=== PATIENT | female | born 1925 | race Caucasian/White ===

== ENCOUNTER 2016-05-10 14:31 | Inpatient (IN) | payer MEDICARE, MEDICAID ==
[2016-05-10 14:31] VITALS: BMI 18.9
--- NOTE | 2016-05-10 15:43 | C.PDOC ---
History Of Present Illness 89-year-old female, PMHx includes Hypertension, Asthma and COPD, presents to the emergency department accompanied by daughter, with complaints of productive cough and fever for the past three days. Patient denies nausea/vomiting, abdominal pain, back pain, chest pain or SOB. Time Seen by Provider: 05/10/16 14:48 Chief Complaint (Nursing): Cough, Cold, Congestion History Per: Patient History/Exam Limitations: no limitations Onset/Duration Of Symptoms: Days (3) Current Symptoms Are (Timing): Still Present Associated Symptoms: Fever, Cough Ear Symptoms: Bilateral: None Severity: Mild Past Medical History Reviewed: Historical Data, Nursing Documentation, Vital Signs Vital Signs: Last Vital Signs Temp 98.1 F 05/21/16 15:00 Pulse 85 05/21/16 15:00 Resp 20 05/21/16 15:00 BP 148/77 05/21/16 15:00 Pulse Ox 100 05/21/16 15:00 - Medical History PMH: Arthritis, Asthma, COPD, HTN Family History: States: No Known Family Hx - Social History Hx Alcohol Use: No Hx Substance Use: No - Immunization History Hx Tetanus Toxoid Vaccination: No Hx Influenza Vaccination: Yes Hx Pneumococcal Vaccination: No Review Of Systems Except As Marked, All Systems Reviewed And Found Negative. Constitutional: Positive for: Fever Cardiovascular: Negative for: Chest Pain, Palpitations Respiratory: Positive for: Cough. Negative for: Shortness of Breath Gastrointestinal: Negative for: Nausea, Vomiting, Abdominal Pain, Diarrhea Genitourinary: Negative for: Dysuria, Hematuria Physical Exam - Physical Exam Appears: Well, Non-toxic, No Acute Distress, Other (speaking in full sentences) Skin: Warm, Dry, No Rash Eye(s): bilateral: Normal Inspection Oral Mucosa: Moist Throat: Normal, No Erythema, No Exudate Neck: Normal, Normal ROM Cardiovascular: Rhythm Regular Respiratory: Decreased Breath Sounds (left lung base), No Accessory Muscle Use, No Rales, No Rhonchi, No Wheezing Gastrointestinal/Abdominal: Normal Exam, Bowel Sounds, Soft, No Tenderness Extremity: Normal ROM, No Tenderness, No Pedal Edema, No Calf Tenderness Neurological/Psych: Oriented x3 ED Course And Treatment - Laboratory Results Result Diagrams: 05/20/16 08:30 05/20/16 08:30 ECG: Interpreted By Me, Viewed By Me (sinus tachycardia 106 bpm, normal axis, RBBB, no acute ST/T wave changes) O2 Sat by Pulse Oximetry: 100 (RA) Pulse Ox Interpretation: Normal - Other Rad cxr X-Ray: Viewed By Me, Read By Radiologist Interpretation: Accession No. : [id number]. Patient Name / ID : MARYCRUZ IBARRA / [id number]. Exam Date : 05/10/2016 16:40:32 ( Approved ). Study Comment : Sex / Age : F / 89Y. Creator : Richy Blackburn MD. Dictator : Richy Blackburn MD. Hand Drawer In Helper : Chemical Production Technician : Richy Blackburn MD. Approver2 : Report Date : 05/10/2016 17:01:53. My Comment : . PROCEDURE: CHEST RADIOGRAPH, 1 VIEW. HISTORY: COUGH, FEVER. COMPARISON: April 26, 2016. FINDINGS: LUNGS: Stable mass, volume loss right lung, right upper lobe. PLEURA: No pneumothorax or pleural fluid seen. CARDIOVASCULAR: No radiographic findings to suggest acute or significant cardiovascular disease. OSSEOUS STRUCTURES: No significant abnormalities. VISUALIZED UPPER ABDOMEN: Normal. OTHER FINDINGS: None. IMPRESSION: No active disease. No acute/ significant interval changes. Progress Note: Bloodwork, CXR, UA ordered and reviewed. Patient's symptoms suspicious for clinical pneumonia - patient recently discharged from hospital, will need coverage for HAP. Patient given IV Maxipime, IV Avelox and IV Vancomycin. - Physician Consult Information Physician Contacted: Meryl Coulter Outcome Of Conversation: Discussed patient with Dr. Coulter, he agrees with admission for fever, pneumonia. Medical Decision Making Medical Decision Making: differential diagnoses considered: pneumonia, bronchitis, viral syndrome, UTI, influenza Disposition - Disposition Disposition: HOSPITALIZED Disposition Time: 17:53 Condition: STABLE - Clinical Impression Clinical Impression: Fever, Cough, Pneumonia - Scribe Statement The provider has reviewed the documentation as recorded by the Sam Galicia All medical record entries made by the Scribe were at my direction and personally dictated by me. I have reviewed the chart and agree that the record accurately reflects my personal performance of the history, physical exam, medical decision making, and the department course for this patient. I have also personally directed, reviewed, and agree with the discharge instructions and disposition. Decision To Admit - Pt Status Changed To: Hospital Disposition Of: Inpatient - Admit Certification Admit to Inpatient:: After my assessment, the patient will require hospitalization for at least two midnights. This is because of the severity of symptoms shown, intensity of services needed, and/or the medical risk in this patient being treated as an outpatient. - InPatient: Physician Admission Certification: I certify that this patient requires 2 or more midnights of care for the following reason:: see notes - . Bed Request Type: Regular Admitting Physician: Meryl Coulter Patient Diagnosis: Fever, Cough, Pneumonia
[2016-05-10 16:46] LABS: BASO % 0.3 % (0.0-2.0); HEMATOCRIT 35.3 % (34.0-47.0); LYMPH # 1.1 K/uL (1.0-4.3); LYMPH % 7.2 % (20.0-40.0); MEAN CELL VOLUME 92.7 fL (81.0-99.0); MEAN CORPUSCULAR HEMOGLOBIN 30.1 pg (27.0-31.0); MEAN CORPUSCULAR HGB CONC 32.5 g/dL (33.0-37.0); MEAN PLATELET VOLUME 7.4 fL (7.2-11.7); MONO # 0.9 K/uL (0.0-0.8); MONO % 6.3 % (0.0-10.0); PLATELET COUNT 282 K/uL (130-400); RED CELL DISTRIBUTION WIDTH 12.9 % (11.5-14.5); WHITE BLOOD COUNT 15.1 K/uL (4.8-10.8)
[2016-05-10 16:52] LABS: CHLORIDE 91 mmol/L (98-107)
[2016-05-10 16:53] LABS: POTASSIUM 4.2 mmol/L (3.6-5.2); SODIUM 135 mmol/L (132-148)
[2016-05-10 16:56] LABS: ALB/GLOB RATIO 1.1 (1.0-2.1); ALKALINE PHOSPHATASE 104 U/L (38-126); ALT/SGPT 30 U/L (9-52); AST/SGOT 34 U/L (14-36); BILIRUBIN,TOTAL 0.5 mg/dL (0.2-1.3); BLOOD UREA NITROGEN 13 mg/dL (7-17); CALCIUM 7.9 mg/dl (8.6-10.4); CARBON DIOXIDE 30 mmol/L (22-30); GFR AFRICAN-AMERICAN > 60; GLUCOSE,RANDOM 98 mg/dL (65-105); TOTAL PROTEIN 7.3 g/dL (6.3-8.3)
[2016-05-10 17:01] LABS: URINE BACTERIA RARE (<OCC); URINE BILIRUBIN NEGATIVE (NEGATIVE); URINE BLOOD NEGATIVE (NEGATIVE); URINE COLOR Yellow (YELLOW); URINE GLUCOSE (UA) NORMAL (Normal); URINE KETONE NEGATIVE (NEGATIVE); URINE LEUKOCYTE ESTERASE TRACE Leu/uL (Negative); URINE PROTEIN NEGATIVE (NEGATIVE); URINE UROBILINOGEN NORMAL mg/dL (0.2-1.0); WBC URINE 6 /hpf (0-5)
--- NOTE | 2016-05-10 17:03 | RAD ---
PROCEDURE: CHEST RADIOGRAPH, 1 VIEW HISTORY: COUGH, FEVER COMPARISON: April 26, 2016. FINDINGS: LUNGS: Stable mass, volume loss right lung, right upper lobe. PLEURA: No pneumothorax or pleural fluid seen. CARDIOVASCULAR: No radiographic findings to suggest acute or significant cardiovascular disease. OSSEOUS STRUCTURES: No significant abnormalities. VISUALIZED UPPER ABDOMEN: Normal. OTHER FINDINGS: None. IMPRESSION: No active disease. No acute/significant interval changes.
[2016-05-10 17:10] LABS: VENOUS BLOOD GAS BASE EXCESS 5.6 mmol/L (0.0-2.0); VENOUS BLOOD GAS PCO2 45 mmHg (40-60); VENOUS BLOOD PH 7.44 (7.32-7.43)
[2016-05-10] MEDS ORDERED: Cefepime 1 GM in Sodium Chloride 0.9% 50 ML IVPB STA (17:51)
[2016-05-10] MEDS ORDERED: Moxifloxacin IV 400mg/250ml NS 250 ML IV ONE (17:51)
[2016-05-10 18:03] LABS: NEUTROPHIL 71 % (50-75); TOTAL CELLS COUNTED 100
[2016-05-10 18:06] LABS: GIANT PLATELETS PRESENT; LARGE PLATELETS PRESENT
[2016-05-10] MEDS ORDERED: Moxifloxacin IV 400mg/250ml NS 250 ML IVPB ONE (18:22)
[2016-05-10] MEDS ORDERED: Cefepime IV 1 gm in Dextrose 50 ML IVPB STA (18:25)
[2016-05-10] MEDS: Dextrose 5%/0.45% NS 1,000 ML IV SCH (22:04)
[2016-05-10] MEDS: MethylPREDNISolone 40 mg Vial IV SCH (22:06)
[2016-05-10] MEDS: guaiFENesin DM 100 mg-10 mg/5 ml UD PO SCH (22:09)
[2016-05-11] MEDS: Albuterol-Ipratrop 3 mg / 0.5 (3 ml) UD INH SCH ×7 (00:44→19:46)
[2016-05-11] MEDS: Fluticasone-Salmeterol 250-50mcg Diskus INH SCH ×2 (07:54→19:46)
[2016-05-11] MEDS: Tiotropium 18 mcg Cap For Inhalation INH SCH (07:55)
[2016-05-11] MEDS: guaiFENesin DM 100 mg-10 mg/5 ml UD PO SCH ×4 (10:50→22:42)
[2016-05-11] MEDS: Pantoprazole 40 mg EC Tab PO SCH (10:50)
[2016-05-11] MEDS: MethylPREDNISolone 40 mg Vial IV SCH ×2 (10:50→22:00)
[2016-05-11] MEDS: Enoxaparin 30 mg Syringe SC SCH (10:51)
[2016-05-11] MEDS: Dextrose 5%/0.45% NS 1,000 ML IV SCH ×2 (10:57→22:39)
--- NOTE | 2016-05-11 14:58 | CP.PCM.PN ---
Subjective - Date & Time of Evaluation Date of Evaluation: 05/11/16 Time of Evaluation: 09:30 - Subjective Subjective: Dr. Yfn pringle, Patient seen and evaluated in room. Unable to obtain history from patient due to her language, difficulty hearing, and dementia. She is sitting up in chair and is very comfortable. Objective - Vital Signs/Intake and Output Vital Signs (last 24 hours): Temp Pulse Resp BP Pulse Ox 98.5 F 76 20 133/79 97 05/11/16 08:00 05/11/16 12:51 05/11/16 08:00 05/11/16 08:00 05/11/16 08:00 Intake and Output: 05/11/16 05/11/16 06:59 18:59 Intake Total 1190 Output Total 400 Balance 790 - Medications Medications: Current Medications Albuterol/Ipratropium (Duoneb 3 Mg/0.5 Mg (3 Ml) Ud) 3 ml INH RQ4 [facility] Last Admin: 05/11/16 14:03 Dose: 3 ml Amlodipine Besylate (Norvasc) 5 mg PO DAILY [facility] Last Admin: 05/11/16 10:50 Dose: 5 mg Enoxaparin Sodium (Lovenox) 30 mg SC DAILY [facility] Last Admin: 05/11/16 10:51 Dose: 30 mg Guaifenesin/Dextromethorphan (Robitussin Dm) 5 ml PO QID [facility] Last Admin: 05/11/16 14:17 Dose: 5 ml Moxifloxacin HCl (Avelox Iv 400mg/250ml Ns) 250 mls @ 167 mls/hr IVPB Q24H [facility] Dextrose/Sodium Chloride (Dextrose 5%/0.45% Ns 1000 Ml) 1,000 mls @ 80 mls/hr IV .[id number] [facility] Last Admin: 05/11/16 10:57 Dose: 80 mls/hr Methylprednisolone (Solu-Medrol) 40 mg IV Q12 [facility] Last Admin: 05/11/16 10:50 Dose: 40 mg Montelukast Sodium (Singulair) 10 mg PO DAILY [facility] Last Admin: 05/11/16 10:49 Dose: 10 mg Pantoprazole Sodium (Protonix Ec Tab) 40 mg PO DAILY [facility] Last Admin: 05/11/16 10:50 Dose: 40 mg Pneumococcal Polyvalent Vaccine (Pneumovax 23 Vaccine) 0.5 ml IM .ONCE ONE Stop: 05/12/16 10:01 Fluticasone/Salmeterol (Advair Diskus 250/50) 1 puff INH RQ12 [facility] Last Admin: 05/11/16 07:54 Dose: Not Given Tiotropium [place] (Spiriva) 18 mcg INH RQ24 [facility] Last Admin: 05/11/16 07:55 Dose: Not Given - Labs Labs: PT 11.2 SECONDS (9.7-12.2) 05/10/16 16:41 INR 1.0 05/10/16 16:41 - Constitutional Appears: Non-toxic, No Acute Distress - Head Exam Head Exam: ATRAUMATIC, NORMAL INSPECTION, NORMOCEPHALIC - Eye Exam Eye Exam: Normal appearance - ENT Exam ENT Exam: Normal Exam - Respiratory Exam Respiratory Exam: Clear to Ausculation Bilateral. absent: Rhonchi, Wheezes - Cardiovascular Exam Cardiovascular Exam: REGULAR RHYTHM, RRR. absent: Gallop, Rubs - GI/Abdominal Exam GI & Abdominal Exam: Soft - Extremities Exam Extremities Exam: absent: Pedal Edema - Neurological Exam Neurological Exam: Alert - Skin Skin Exam: Normal Color, Warm Assessment and Plan (1) Pneumonia Assessment & Plan: Patient was admitted yesterday, she was given cefepime and Vancomycin in the Ed. She is now on Avelox day 2, Duoneb treatments, Spirivia, Advair, Singular. Solumedrol IV Robitussin for cough as needed. blood and urine cultures negative. Status: Acute (2) HTN (hypertension) Assessment & Plan: Novasc 5mg daily Status: Chronic (3) Prophylactic measure Assessment & Plan: pepcid 20mg daily Lovenox 30mg SC D5 IV fluids. Status: Acute
--- NOTE | 2016-05-11 16:12 | CARD ---
APPROVED REPORT EKG Measurement Heart [id number] <Conclusion> Sinus tachycardia with premature atrial complexes Right bundle branch block Abnormal ECG
[2016-05-11] MEDS: Moxifloxacin IV 400mg/250ml NS 250 ML IVPB SCH (20:00)
[2016-05-12] MEDS: Albuterol-Ipratrop 3 mg / 0.5 (3 ml) UD INH SCH ×6 (00:53→20:13)
--- NOTE | 2016-05-12 08:01 | HP ---
The patient chief complains of shortness of breath, weakness, fatigue, tiredness. The patient came t [facility], advised admission. The patient has history of COPD, history of pneumonia. The patient i s very weak, elderly, frail. PHYSICAL EXAMINATION: VITAL SIGNS: Temperature 98, pulse 90. HEENT: Within normal limits. NECK: Supple. CHEST: Symmetrical. HEART: Regular. ABDOMEN: Soft. EXTREMITIES: No edema. The patient suffers from COPD, ____ bronchitis. The patient on bedrest, supportive care, bronchodila tors, antibiotics. Meryl Crawford MD cc: [id number] TT: 05/11/2016 11:06:57 an 05/12/2016 07:00:54
[2016-05-12 08:09] LABS: BASO % 0.2 % (0.0-2.0); LYMPH # 1.2 K/uL (1.0-4.3); LYMPH % 11.1 % (20.0-40.0); MEAN CELL VOLUME 92.7 fL (81.0-99.0); MEAN CORPUSCULAR HEMOGLOBIN 29.2 pg (27.0-31.0); MEAN CORPUSCULAR HGB CONC 31.6 g/dL (33.0-37.0); MEAN PLATELET VOLUME 7.1 fL (7.2-11.7); MONO # 0.4 K/uL (0.0-0.8); MONO % 3.6 % (0.0-10.0); RED CELL DISTRIBUTION WIDTH 12.9 % (11.5-14.5); WHITE BLOOD COUNT 10.8 K/uL (4.8-10.8)
[2016-05-12 08:31] LABS: CHLORIDE 100 mmol/L (98-107)
[2016-05-12 08:32] LABS: POTASSIUM 3.4 mmol/L (3.6-5.2); SODIUM 143 mmol/L (132-148)
[2016-05-12 08:34] LABS: AST/SGOT 29 U/L (14-36); BILIRUBIN,TOTAL 0.3 mg/dL (0.2-1.3); CARBON DIOXIDE 29 mmol/L (22-30); GFR AFRICAN-AMERICAN > 60; TOTAL PROTEIN 7.2 g/dL (6.3-8.3)
[2016-05-12 08:35] LABS: ALKALINE PHOSPHATASE 76 U/L (38-126); ALT/SGPT 34 U/L (9-52); BLOOD UREA NITROGEN 9 mg/dL (7-17); CALCIUM 8.1 mg/dl (8.6-10.4); GLUCOSE,RANDOM 150 mg/dL (65-105); MAGNESIUM 2.3 mg/dL (1.6-2.3); PHOSPHOROUS 2.9 mg/dL (2.5-4.5)
[2016-05-12] MEDS: MethylPREDNISolone 40 mg Vial IV SCH ×2 (09:59→21:45)
[2016-05-12] MEDS: Enoxaparin 30 mg Syringe SC SCH (09:59)
[2016-05-12] MEDS ORDERED: Pneumococcal 23-Valent Vaccine IM ONE ×2 (10:00→15:00)
[2016-05-12] MEDS: Pantoprazole 40 mg EC Tab PO SCH (10:01)
[2016-05-12] MEDS: Fluticasone-Salmeterol 250-50mcg Diskus INH SCH ×2 (11:01→20:52)
[2016-05-12] MEDS: Tiotropium 18 mcg Cap For Inhalation INH SCH (11:11)
[2016-05-12] MEDS: guaiFENesin DM 100 mg-10 mg/5 ml UD PO SCH ×4 (11:21→21:40)
[2016-05-12] MEDS: Dextrose 5%/0.45% NS 1,000 ML IV SCH ×2 (11:40→17:19)
--- NOTE | 2016-05-12 16:15 | CP.PCM.PN ---
Subjective - Date & Time of Evaluation Date of Evaluation: 05/12/16 Time of Evaluation: 08:45 - Subjective Subjective: Dr. Coulter service: Patient is seen and evaluated in room. She is sitting up in room looking very comfortable. Unable to obtain much of a history. But patient does report some exertional dyspnea. Objective - Vital Signs/Intake and Output Vital Signs (last 24 hours): Temp Pulse Resp BP Pulse Ox 98.4 F 76 20 128/65 97 05/12/16 08:00 05/12/16 12:28 05/12/16 08:00 05/12/16 12:28 05/12/16 12:28 Intake and Output: 05/12/16 05/12/16 06:59 18:59 Intake Total 840 740 Balance 840 740 - Medications Medications: Current Medications Albuterol/Ipratropium (Duoneb 3 Mg/0.5 Mg (3 Ml) Ud) 3 ml INH RQ4 [facility] Last Admin: 05/12/16 16:03 Dose: 3 ml Amlodipine Besylate (Norvasc) 5 mg PO DAILY [facility] Last Admin: 05/12/16 09:59 Dose: 5 mg Enoxaparin Sodium (Lovenox) 30 mg SC DAILY [facility] Last Admin: 05/12/16 09:59 Dose: 30 mg Famotidine (Pepcid) 20 mg PO DAILY [facility] Last Admin: 05/12/16 10:04 Dose: 20 mg Guaifenesin/Dextromethorphan (Robitussin Dm) 5 ml PO QID [facility] Last Admin: 05/12/16 15:10 Dose: 5 ml Moxifloxacin HCl (Avelox Iv 400mg/250ml Ns) 250 mls @ 167 mls/hr IVPB Q24H [facility] Last Admin: 05/11/16 20:00 Dose: 167 mls/hr Dextrose/Sodium Chloride (Dextrose 5%/0.45% Ns 1000 Ml) 1,000 mls @ 80 mls/hr IV .[id number] [facility] Last Admin: 05/12/16 11:40 Dose: Not Given Methylprednisolone (Solu-Medrol) 40 mg IV Q12 [facility] Last Admin: 05/12/16 09:59 Dose: 40 mg Montelukast Sodium (Singulair) 10 mg PO DAILY [facility] Last Admin: 05/12/16 09:59 Dose: 10 mg Pantoprazole Sodium (Protonix Ec Tab) 40 mg PO DAILY [facility] Last Admin: 05/12/16 10:01 Dose: 40 mg Fluticasone/Salmeterol (Advair Diskus 250/50) 1 puff INH RQ12 [facility] Last Admin: 05/12/16 11:01 Dose: Not Given Tiotropium [place] (Spiriva) 18 mcg INH RQ24 [facility] Last Admin: 05/12/16 11:11 Dose: Not Given - Labs Labs: 05/12/16 08:04 05/12/16 08:04 PT 11.2 SECONDS (9.7-12.2) 05/10/16 16:41 INR 1.0 05/10/16 16:41 - Constitutional Appears: Non-toxic, No Acute Distress - Head Exam Head Exam: ATRAUMATIC, NORMAL INSPECTION - Eye Exam Eye Exam: Normal appearance Pupil Exam: NORMAL ACCOMODATION - Respiratory Exam Respiratory Exam: Clear to Ausculation Bilateral. absent: Rhonchi, Wheezes - Cardiovascular Exam Cardiovascular Exam: REGULAR RHYTHM, RRR. absent: Gallop, Rubs - GI/Abdominal Exam GI & Abdominal Exam: Soft - Extremities Exam Extremities Exam: absent: Pedal Edema - Skin Skin Exam: Normal Color, Warm Assessment and Plan - Assessment and Plan (Free Text) Assessment: Assessment and Plan (1) Pneumonia Assessment & Plan: 05/12: Patient is now on day 3 of Avelox, continue with current treatment, have ordered for physical therapy, possible discharge to [facility]. Will also discuss with family about possible [facility] discharge. Previous note: Patient was admitted yesterday, she was given cefepime and Vancomycin in the Ed. She is now on Avelox day 2, Duoneb treatments, Spirivia, Advair, Singular. Solumedrol IV Robitussin for cough as needed. blood and urine cultures negative. Status: Acute (2) HTN (hypertension) Assessment & Plan: Novasc 5mg daily Status: Chronic (3) Prophylactic measure Assessment & Plan: pepcid 20mg daily Lovenox 30mg SC D5 IV fluids. Status: Acute
[2016-05-12] MEDS ORDERED: Potassium Chloride 20 mEq ER Tab PO STA (18:50)
[2016-05-12] MEDS: Moxifloxacin IV 400mg/250ml NS 250 ML IVPB SCH (20:00)
[2016-05-13] MEDS: Dextrose 5%/0.45% NS 1,000 ML IV SCH ×2 (00:01→12:30)
[2016-05-13] MEDS: Albuterol-Ipratrop 3 mg / 0.5 (3 ml) UD INH SCH ×6 (00:50→19:21)
[2016-05-13] MEDS: Tiotropium 18 mcg Cap For Inhalation INH SCH (08:01)
[2016-05-13] MEDS: Fluticasone-Salmeterol 250-50mcg Diskus INH SCH ×2 (08:02→19:21)
[2016-05-13] MEDS: MethylPREDNISolone 40 mg Vial IV SCH ×2 (10:00→21:37)
[2016-05-13] MEDS: guaiFENesin DM 100 mg-10 mg/5 ml UD PO SCH ×4 (10:00→21:36)
[2016-05-13] MEDS: Pantoprazole 40 mg EC Tab PO SCH (10:02)
[2016-05-13] MEDS: Enoxaparin 30 mg Syringe SC SCH (10:02)
[2016-05-13] MEDS: Moxifloxacin IV 400mg/250ml NS 250 ML IVPB SCH (19:15)
[2016-05-14] MEDS: Albuterol-Ipratrop 3 mg / 0.5 (3 ml) UD INH SCH ×6 (00:53→19:19)
[2016-05-14] MEDS: Tiotropium 18 mcg Cap For Inhalation INH SCH (08:25)
[2016-05-14] MEDS: Fluticasone-Salmeterol 250-50mcg Diskus INH SCH ×2 (08:25→19:19)
[2016-05-14] MEDS: Enoxaparin 30 mg Syringe SC SCH (11:05)
[2016-05-14] MEDS: Pantoprazole 40 mg EC Tab PO SCH (11:06)
[2016-05-14] MEDS: MethylPREDNISolone 40 mg Vial IV SCH ×2 (11:07→21:08)
[2016-05-14] MEDS: guaiFENesin DM 100 mg-10 mg/5 ml UD PO SCH ×4 (11:07→21:07)
[2016-05-14] MEDS: Moxifloxacin IV 400mg/250ml NS 250 ML IVPB SCH (20:00)
[2016-05-15] MEDS: Albuterol-Ipratrop 3 mg / 0.5 (3 ml) UD INH SCH ×7 (00:41→23:34)
[2016-05-15] MEDS: Tiotropium 18 mcg Cap For Inhalation INH SCH (08:27)
[2016-05-15] MEDS: Fluticasone-Salmeterol 250-50mcg Diskus INH SCH ×2 (08:27→22:10)
--- NOTE | 2016-05-15 08:53 | CP.PCM.PN ---
Subjective - Date & Time of Evaluation Date of Evaluation: 05/15/16 Time of Evaluation: 07:30 - Subjective Subjective: PGY2 Medicine Note - Dr. Coulter's service: Patient is seen and evaluated in room. She is lying in bed complaining of pain in her right rib. Patient cannot describe the pain or say if she feels SOB. She also cannot tell me how long she has had the pain. Unable to obtain much of a history due to language barrier and hearing loss of patient. Objective - Vital Signs/Intake and Output Vital Signs (last 24 hours): Temp Pulse Resp BP Pulse Ox 98.5 F 93 H 20 132/68 97 05/14/16 23:50 05/14/16 23:50 05/14/16 23:50 05/14/16 23:50 05/14/16 23:50 - Medications Medications: Current Medications Acetaminophen (Tylenol 325mg Tab) 650 mg PO Q6 PRN PRN Reason: Pain, moderate (4-7) Albuterol/Ipratropium (Duoneb 3 Mg/0.5 Mg (3 Ml) Ud) 3 ml INH RQ4 [facility] Last Admin: 05/15/16 08:27 Dose: 3 ml Amlodipine Besylate (Norvasc) 5 mg PO DAILY [facility] Last Admin: 05/14/16 11:06 Dose: 5 mg Enoxaparin Sodium (Lovenox) 30 mg SC DAILY [facility] Last Admin: 05/14/16 11:05 Dose: 30 mg Guaifenesin/Dextromethorphan (Robitussin Dm) 5 ml PO QID [facility] Last Admin: 05/14/16 21:07 Dose: 5 ml Moxifloxacin HCl (Avelox Iv 400mg/250ml Ns) 250 mls @ 167 mls/hr IVPB Q24H [facility] Last Admin: 05/14/16 20:00 Dose: 167 mls/hr Methylprednisolone (Solu-Medrol) 40 mg IV Q12 [facility] Last Admin: 05/14/16 21:08 Dose: 40 mg Montelukast Sodium (Singulair) 10 mg PO DAILY [facility] Last Admin: 05/14/16 11:08 Dose: 10 mg Pantoprazole Sodium (Protonix Ec Tab) 40 mg PO DAILY [facility] Last Admin: 05/14/16 11:06 Dose: 40 mg Fluticasone/Salmeterol (Advair Diskus 250/50) 1 puff INH RQ12 [facility] Last Admin: 05/15/16 08:27 Dose: 1 puff Tiotropium [place] (Spiriva) 18 mcg INH RQ24 [facility] Last Admin: 05/15/16 08:27 Dose: 18 mcg - Labs Labs: 05/12/16 08:04 05/12/16 08:04 PT 11.2 SECONDS (9.7-12.2) 05/10/16 16:41 INR 1.0 05/10/16 16:41 - Constitutional Appears: Non-toxic, No Acute Distress, Cachectic - Head Exam Head Exam: NORMAL INSPECTION - Eye Exam Eye Exam: EOMI - ENT Exam ENT Exam: Mucous Membranes Moist - Respiratory Exam Respiratory Exam: Chest Wall Tenderness, Clear to Ausculation Bilateral, NORMAL BREATHING PATTERN. absent: Rales, Rhonchi, Wheezes - Cardiovascular Exam Cardiovascular Exam: REGULAR RHYTHM, +S1, +S2. absent: Gallop, Rubs, Murmur - GI/Abdominal Exam GI & Abdominal Exam: Soft, Normal Bowel Sounds. absent: Distended, Firm, Tenderness - Extremities Exam Extremities Exam: absent: Pedal Edema - Neurological Exam Neurological Exam: Alert, Oriented x3 - Psychiatric Exam Psychiatric exam: Normal Affect, Normal Mood - Skin Skin Exam: Normal Color, Warm Assessment and Plan - Assessment and Plan (Free Text) Assessment: (1) Pneumonia Assessment & Plan: 05/15: CXR on admission shows no acute disease. Continue Avelox per Dr. Coulter. Started on 05/11/16 F/U ROME and ddimer for chest pain Tylenol added for chest pain Patient needs MANUEL. - Case management referral. Previous note: Patient was admitted 05/10/16, she was given cefepime and Vancomycin in the Ed. Duoneb treatments, Spirivia, Advair, Singular. Solumedrol IV Robitussin for cough as needed. blood and urine cultures negative. Status: Acute (2) HTN (hypertension) Assessment & Plan: Novasc 5mg daily Status: Chronic (3) Prophylactic measure Assessment & Plan: pepcid 20mg daily Lovenox 30mg SC D5 IV fluids. Status: Acute
--- NOTE | 2016-05-15 09:21 | PN ---
DATE: 05/14/2016 The patient is feeling weak, tired, fatigued. Supportive care. Continue antibiotics. Meryl Crawford MD cc: [id number] TT: 05/14/2016 12:02:35 Confirmation # [id number] Dictation # [id number]
[2016-05-15 09:27] LABS: BASO % 0.3 % (0.0-2.0); HEMATOCRIT 34.8 % (34.0-47.0); LYMPH # 1.4 K/uL (1.0-4.3); LYMPH % 13.5 % (20.0-40.0); MEAN CELL VOLUME 92.5 fL (81.0-99.0); MEAN CORPUSCULAR HGB CONC 32.4 g/dL (33.0-37.0); MONO # 0.6 K/uL (0.0-0.8); MONO % 5.9 % (0.0-10.0); RED CELL DISTRIBUTION WIDTH 12.8 % (11.5-14.5); WHITE BLOOD COUNT 10.3 K/uL (4.8-10.8)
[2016-05-15] MEDS: MethylPREDNISolone 40 mg Vial IV SCH ×2 (09:34→21:07)
[2016-05-15] MEDS: Enoxaparin 30 mg Syringe SC SCH (09:34)
[2016-05-15 09:35] LABS: CHLORIDE 98 mmol/L (98-107); POTASSIUM 3.4 mmol/L (3.6-5.2); SODIUM 142 mmol/L (132-148)
[2016-05-15] MEDS: Pantoprazole 40 mg EC Tab PO SCH (09:35)
[2016-05-15] MEDS: guaiFENesin DM 100 mg-10 mg/5 ml UD PO SCH ×4 (09:35→21:07)
[2016-05-15 09:37] LABS: ALB/GLOB RATIO 1.1 (1.0-2.1); ALKALINE PHOSPHATASE 81 U/L (38-126); AST/SGOT 29 U/L (14-36); BILIRUBIN,TOTAL 0.4 mg/dL (0.2-1.3); BLOOD UREA NITROGEN 13 mg/dL (7-17); CARBON DIOXIDE 30 mmol/L (22-30); GFR AFRICAN-AMERICAN > 60; TOTAL PROTEIN 6.6 g/dL (6.3-8.3)
[2016-05-15 09:38] LABS: ALT/SGPT 38 U/L (9-52); GLUCOSE,RANDOM 132 mg/dL (65-105)
[2016-05-16] MEDS: Albuterol-Ipratrop 3 mg / 0.5 (3 ml) UD INH SCH ×5 (03:20→20:02)
[2016-05-16] MEDS ORDERED: Potassium Chloride 20 mEq ER Tab PO STA (05:52)
[2016-05-16] MEDS: Fluticasone-Salmeterol 250-50mcg Diskus INH SCH (08:44)
[2016-05-16] MEDS: Tiotropium 18 mcg Cap For Inhalation INH SCH (08:44)
--- NOTE | 2016-05-16 09:43 | CP.PCM.PN ---
Subjective - Date & Time of Evaluation Date of Evaluation: 05/16/16 Time of Evaluation: 07:15 - Subjective Subjective: PGY2 Medicine Note - Dr. Coulter's service: Patient is seen and evaluated in room. Nurse at bedside translating for me. She is lying in bed complaining of pain in her left ribs (right ribs yesterday) . Patient cannot describe the pain. She also cannot tell me how long she has had the pain. Patient reports feeling SOB especially without her oxygen on. Unable to obtain much of a history due to language barrier and hearing loss of patient. Objective - Vital Signs/Intake and Output Vital Signs (last 24 hours): Temp Pulse Resp BP Pulse Ox 97.4 F L 91 H 20 156/74 H 99 05/15/16 23:50 05/15/16 23:50 05/15/16 23:50 05/15/16 23:50 05/15/16 23:50 Intake and Output: 05/16/16 05/16/16 06:59 18:59 Intake Total 150 Balance 150 - Medications Medications: Current Medications Acetaminophen (Tylenol 325mg Tab) 650 mg PO Q6 PRN PRN Reason: Pain, moderate (4-7) Last Admin: 05/15/16 09:51 Dose: 650 mg Albuterol/Ipratropium (Duoneb 3 Mg/0.5 Mg (3 Ml) Ud) 3 ml INH RQ4 [facility] Last Admin: 05/16/16 08:44 Dose: 3 ml Amlodipine Besylate (Norvasc) 5 mg PO DAILY [facility] Last Admin: 05/15/16 09:35 Dose: 5 mg Enoxaparin Sodium (Lovenox) 30 mg SC DAILY [facility] Last Admin: 05/15/16 09:34 Dose: 30 mg Guaifenesin/Dextromethorphan (Robitussin Dm) 5 ml PO QID [facility] Last Admin: 05/15/16 21:07 Dose: 5 ml Methylprednisolone (Solu-Medrol) 40 mg IV Q12 [facility] Last Admin: 05/15/16 21:07 Dose: 40 mg Montelukast Sodium (Singulair) 10 mg PO DAILY [facility] Last Admin: 05/15/16 09:35 Dose: 10 mg Moxifloxacin HCl (Avelox) 400 mg PO Q24H [facility] Last Admin: 05/15/16 20:04 Dose: 400 mg Pantoprazole Sodium (Protonix Ec Tab) 40 mg PO DAILY [facility] Last Admin: 05/15/16 09:35 Dose: 40 mg Fluticasone/Salmeterol (Advair Diskus 250/50) 1 puff INH RQ12 [facility] Last Admin: 05/16/16 08:44 Dose: 1 puff Tiotropium [place] (Spiriva) 18 mcg INH RQ24 [facility] Last Admin: 05/16/16 08:44 Dose: 18 mcg - Labs Labs: 05/15/16 09:24 05/15/16 09:24 PT 11.2 SECONDS (9.7-12.2) 05/10/16 16:41 INR 1.0 05/10/16 16:41 - Constitutional Appears: Non-toxic, No Acute Distress - Head Exam Head Exam: NORMAL INSPECTION - Eye Exam Eye Exam: EOMI - ENT Exam ENT Exam: Mucous Membranes Moist - Respiratory Exam Respiratory Exam: Clear to Ausculation Bilateral, NORMAL BREATHING PATTERN. absent: Rales, Rhonchi, Wheezes - Cardiovascular Exam Cardiovascular Exam: REGULAR RHYTHM, +S1, +S2. absent: Gallop, Rubs, Murmur - GI/Abdominal Exam GI & Abdominal Exam: Soft, Normal Bowel Sounds. absent: Distended, Firm, Tenderness - Extremities Exam Extremities Exam: Normal Capillary Refill. absent: Pedal Edema - Neurological Exam Neurological Exam: Alert, Awake - Psychiatric Exam Psychiatric exam: Normal Affect, Normal Mood - Skin Skin Exam: Normal Color, Warm Assessment and Plan - Assessment and Plan (Free Text) Assessment: (1) Pneumonia Assessment & Plan: 05/15: CXR on admission shows no acute disease. Continue Avelox per Dr. Coulter. Started on 05/11/16 Patient needs [facility]. - Case management referral. Previous note: Patient was admitted 05/10/16, she was given cefepime and Vancomycin in the Ed. Duoneb treatments, Spirivia, Advair, Singular. Solumedrol IV Robitussin for cough as needed. blood and urine cultures negative. Status: Acute (2) Chest Discomfort Assessment & Plan: ROME negative D dimer elevated WEll's criteria of 6 --> moderate risk for PE F/U CTA Tylenol added for chest pain Status: Chronic (3) HTN (hypertension) Assessment & Plan: Novasc 5mg daily Status: Chronic (4) Prophylactic measure Assessment & Plan: pepcid 20mg daily Lovenox 30mg SC D5 IV fluids. Awaiting call back from family to discuss MANUEL/ shelter Status: Acute
[2016-05-16] MEDS ORDERED: Iodixanol 320 MG/ML 200 ML BOTTLE IV ONE (10:05)
--- NOTE | 2016-05-16 11:38 | CT ---
PROCEDURE: CT Chest with contrast (Pulmonary Angiogram) HISTORY: elevated d dimer, SOB and chest pain COMPARISON: Plain radiographs from 05/10/2016 TECHNIQUE: Axial computed tomography images were obtained of the chest in the pulmonary arterial phase of enhancement. Coronal and sagittal reformatted images were created and reviewed. Intravenous contrast dose: 100 mL Visipaque Radiation dose: Total exam DLP = 280.26 mGy-cm. FINDINGS: PULMONARY ARTERIES: There are no central filling defects in the pulmonary arteries to suggest acute pulmonary embolism. AORTA: The aorta is normal in caliber. There is no evidence of aortic aneurysm or dissection. LUNGS: There is chronic right upper lobe pleural thickening and fibrotic changes with volume loss and shift of trachea to the right. There is mild left apical pleural parenchymal thickening. There is linear atelectasis/ scarring in the inferior aspect of the medial segment of the right middle lobe. There is no focal consolidation. There is mild diffuse centrilobular emphysema. PLEURAL SPACES: No pleural effusions or pneumothorax. HEART: There is mild cardiomegaly without pericardial effusion. LYMPH NODES: No lymphadenopathy. BONES, CHEST WALL: There is diffuse bone demineralization and mild multilevel degenerative disc disease. No destructive bony lesions. OTHER FINDINGS: Unremarkable. IMPRESSION: 1. No CTA evidence for acute pulmonary embolism, aortic aneurysm or aortic dissection. 2. Chronic pleural thickening and fibrotic changes in the right upper lobe with volume loss and shift of trachea to the right. No active pulmonary disease. No consolidation, pleural effusion or pneumothorax.
[2016-05-16] MEDS: Enoxaparin 30 mg Syringe SC SCH (12:23)
[2016-05-16] MEDS: Pantoprazole 40 mg EC Tab PO SCH (12:24)
[2016-05-16] MEDS: guaiFENesin DM 100 mg-10 mg/5 ml UD PO SCH ×4 (12:24→21:37)
[2016-05-16] MEDS: MethylPREDNISolone 40 mg Vial IV SCH ×2 (12:25→21:37)
[2016-05-17] MEDS: Albuterol-Ipratrop 3 mg / 0.5 (3 ml) UD INH SCH ×6 (00:51→23:46)
[2016-05-17] MEDS: Fluticasone-Salmeterol 250-50mcg Diskus INH SCH (08:02)
[2016-05-17 08:04] LABS: BASO % 0.2 % (0.0-2.0); HEMATOCRIT 36.3 % (34.0-47.0); LYMPH # 1.2 K/uL (1.0-4.3); LYMPH % 10.9 % (20.0-40.0); MEAN CORPUSCULAR HGB CONC 32.6 g/dL (33.0-37.0); MEAN PLATELET VOLUME 6.9 fL (7.2-11.7); MONO # 0.5 K/uL (0.0-0.8); MONO % 4.8 % (0.0-10.0); RED CELL DISTRIBUTION WIDTH 12.9 % (11.5-14.5); WHITE BLOOD COUNT 10.9 K/uL (4.8-10.8)
[2016-05-17 08:11] LABS: CHLORIDE 97 mmol/L (98-107); POTASSIUM 3.9 mmol/L (3.6-5.2); SODIUM 140 mmol/L (132-148)
[2016-05-17 08:13] LABS: GFR AFRICAN-AMERICAN > 60
[2016-05-17 08:14] LABS: ALB/GLOB RATIO 1.1 (1.0-2.1); ALKALINE PHOSPHATASE 69 U/L (38-126); ALT/SGPT 45 U/L (9-52); AST/SGOT 22 U/L (14-36); BILIRUBIN,TOTAL 0.6 mg/dL (0.2-1.3); BLOOD UREA NITROGEN 19 mg/dL (7-17); CALCIUM 8.2 mg/dl (8.6-10.4); CARBON DIOXIDE 32 mmol/L (22-30); GLUCOSE,RANDOM 112 mg/dL (65-105); TOTAL PROTEIN 6.3 g/dL (6.3-8.3)
[2016-05-17] MEDS: Tiotropium 18 mcg Cap For Inhalation INH SCH (10:24)
--- NOTE | 2016-05-17 10:31 | CP.PCM.PN ---
Subjective - Date & Time of Evaluation Date of Evaluation: 05/17/16 Time of Evaluation: 07:15 - Subjective Subjective: PGY2 Medicine Note - Dr. Coulter's service: Patient is seen and evaluated in room. Patient reports left sided rib pain. Unable to obtain much of a history due to language barrier and hearing loss of patient. Objective - Vital Signs/Intake and Output Vital Signs (last 24 hours): Temp Pulse Resp BP Pulse Ox 98 F 95 H 20 163/74 H 97 05/17/16 08:00 05/17/16 08:00 05/17/16 08:00 05/17/16 08:00 05/17/16 08:00 Intake and Output: 05/17/16 05/17/16 06:59 18:59 Intake Total 200 Balance 200 - Medications Medications: Current Medications Acetaminophen (Tylenol 325mg Tab) 650 mg PO Q6 PRN PRN Reason: Pain, moderate (4-7) Last Admin: 05/15/16 09:51 Dose: 650 mg Albuterol/Ipratropium (Duoneb 3 Mg/0.5 Mg (3 Ml) Ud) 3 ml INH RQ4 [facility] Last Admin: 05/17/16 08:02 Dose: 3 ml Amlodipine Besylate (Norvasc) 5 mg PO DAILY [facility] Last Admin: 05/16/16 12:23 Dose: 5 mg Enoxaparin Sodium (Lovenox) 30 mg SC DAILY [facility] Last Admin: 05/16/16 12:23 Dose: 30 mg Guaifenesin/Dextromethorphan (Robitussin Dm) 5 ml PO QID [facility] Last Admin: 05/16/16 21:37 Dose: 5 ml Methylprednisolone (Solu-Medrol) 40 mg IV Q12 [facility] Last Admin: 05/16/16 21:37 Dose: 40 mg Montelukast Sodium (Singulair) 10 mg PO DAILY [facility] Last Admin: 05/16/16 12:24 Dose: 10 mg Moxifloxacin HCl (Avelox) 400 mg PO Q24H [facility] Last Admin: 05/16/16 19:25 Dose: 400 mg Pantoprazole Sodium (Protonix Ec Tab) 40 mg PO DAILY [facility] Last Admin: 05/16/16 12:24 Dose: 40 mg Fluticasone/Salmeterol (Advair Diskus 250/50) 1 puff INH RQ12 [facility] Last Admin: 05/17/16 08:02 Dose: 1 puff Tiotropium [place] (Spiriva) 18 mcg INH RQ24 [facility] Last Admin: 05/17/16 10:24 Dose: Not Given - Labs Labs: 05/17/16 07:55 05/17/16 07:55 PT 11.2 SECONDS (9.7-12.2) 05/10/16 16:41 INR 1.0 05/10/16 16:41 - Constitutional Appears: Non-toxic, No Acute Distress, Cachectic, Chronically Ill - Head Exam Head Exam: NORMAL INSPECTION - Eye Exam Eye Exam: EOMI - ENT Exam ENT Exam: Mucous Membranes Moist - Respiratory Exam Respiratory Exam: Clear to Ausculation Bilateral, NORMAL BREATHING PATTERN. absent: Rales, Rhonchi, Wheezes - Cardiovascular Exam Cardiovascular Exam: REGULAR RHYTHM, +S1, +S2. absent: Gallop, Rubs, Murmur - GI/Abdominal Exam GI & Abdominal Exam: Soft, Normal Bowel Sounds. absent: Firm, Guarding, Tenderness - Extremities Exam Extremities Exam: absent: Pedal Edema - Neurological Exam Neurological Exam: Alert, Awake - Psychiatric Exam Psychiatric exam: Normal Affect, Normal Mood - Skin Skin Exam: Normal Color, Warm Assessment and Plan - Assessment and Plan (Free Text) Assessment: (1) Pneumonia Assessment & Plan: 05/17: Continue Avelox. F/U placement for [facility] or prison 05/15: CXR on admission shows no acute disease. Continue Avelox per Dr. Coulter. Started on 05/11/16 Patient needs [facility]. - Case management referral. Previous note: Patient was admitted 05/10/16, she was given cefepime and Vancomycin in the Ed. Duoneb treatments, Spirivia, Advair, Singular. Solumedrol IV Robitussin for cough as needed. blood and urine cultures negative. Status: Acute (2) Chest Discomfort Assessment & Plan: ROME negative D dimer elevated WEll's criteria of 6 --> moderate risk for PE CTA negative for PE Tylenol added for chest pain Status: Chronic (3) HTN (hypertension) Assessment & Plan: Novasc 5mg daily Status: Chronic (4) Prophylactic measure Assessment & Plan: pepcid 20mg daily Lovenox 30mg SC D5 IV fluids. Awaiting call back from family to discuss [facility]/ prison Status: Acute
[2016-05-17] MEDS: Enoxaparin 30 mg Syringe SC SCH (10:39)
[2016-05-17] MEDS: Pantoprazole 40 mg EC Tab PO SCH (10:39)
[2016-05-17] MEDS: MethylPREDNISolone 40 mg Vial IV SCH ×2 (10:40→21:32)
[2016-05-17] MEDS: guaiFENesin DM 100 mg-10 mg/5 ml UD PO SCH ×4 (10:42→21:30)
[2016-05-17] MEDS: Lidocaine 5% Patch TD SCH (14:31)
[2016-05-18] MEDS: Albuterol-Ipratrop 3 mg / 0.5 (3 ml) UD INH SCH ×5 (03:09→20:20)
[2016-05-18 08:22] LABS: EOS % 0.1 % (0.0-4.0); HEMATOCRIT 37.6 % (34.0-47.0); LYMPH # 1.3 K/uL (1.0-4.3); LYMPH % 12.7 % (20.0-40.0); MEAN CORPUSCULAR HEMOGLOBIN 29.8 pg (27.0-31.0); MEAN PLATELET VOLUME 6.9 fL (7.2-11.7); MONO # 0.6 K/uL (0.0-0.8); MONO % 5.3 % (0.0-10.0); RED CELL DISTRIBUTION WIDTH 13.3 % (11.5-14.5); WHITE BLOOD COUNT 10.4 K/uL (4.8-10.8)
[2016-05-18 08:27] LABS: CHLORIDE 95 mmol/L (98-107)
[2016-05-18 08:28] LABS: POTASSIUM 3.9 mmol/L (3.6-5.2); SODIUM 140 mmol/L (132-148)
--- NOTE | 2016-05-18 08:29 | CP.PCM.PN ---
Subjective - Date & Time of Evaluation Date of Evaluation: 05/18/16 Time of Evaluation: 08:45 - Subjective Subjective: Patient seen and examined in room. She is complains of weakness and also some back pain as well. Objective - Vital Signs/Intake and Output Vital Signs (last 24 hours): Temp Pulse Resp BP Pulse Ox 98.5 F 81 20 142/76 98 05/17/16 23:49 05/17/16 23:49 05/17/16 23:49 05/17/16 23:49 05/17/16 23:49 Intake and Output: 05/18/16 05/18/16 06:59 18:59 Intake Total 250 Balance 250 - Medications Medications: Current Medications Acetaminophen (Tylenol 325mg Tab) 650 mg PO Q6 PRN PRN Reason: Pain, moderate (4-7) Last Admin: 05/15/16 09:51 Dose: 650 mg Albuterol/Ipratropium (Duoneb 3 Mg/0.5 Mg (3 Ml) Ud) 3 ml INH RQ4 [facility] Last Admin: 05/18/16 03:09 Dose: 3 ml Amlodipine Besylate (Norvasc) 5 mg PO DAILY [facility] Last Admin: 05/17/16 10:39 Dose: 5 mg Enoxaparin Sodium (Lovenox) 30 mg SC DAILY [facility] Last Admin: 05/17/16 10:39 Dose: 30 mg Guaifenesin/Dextromethorphan (Robitussin Dm) 5 ml PO QID [facility] Last Admin: 05/17/16 21:30 Dose: 5 ml Lidocaine (Lidoderm) 1 ea TD DAILY [facility] Last Admin: 05/17/16 14:31 Dose: 1 ea Methylprednisolone (Solu-Medrol) 40 mg IV Q12 [facility] Last Admin: 05/17/16 21:32 Dose: 40 mg Montelukast Sodium (Singulair) 10 mg PO DAILY [facility] Last Admin: 05/17/16 10:39 Dose: 10 mg Moxifloxacin HCl (Avelox) 400 mg PO Q24H [facility] Last Admin: 05/16/16 19:25 Dose: 400 mg Pantoprazole Sodium (Protonix Ec Tab) 40 mg PO DAILY [facility] Last Admin: 05/17/16 10:39 Dose: 40 mg Fluticasone/Salmeterol (Advair Diskus 250/50) 1 puff INH RQ12 [facility] Last Admin: 05/17/16 08:02 Dose: 1 puff Tiotropium [place] (Spiriva) 18 mcg INH RQ24 [facility] Last Admin: 05/17/16 10:24 Dose: Not Given - Labs Labs: 05/17/16 07:55 05/17/16 07:55 PT 11.2 SECONDS (9.7-12.2) 05/10/16 16:41 INR 1.0 05/10/16 16:41 - Constitutional Appears: Non-toxic, No Acute Distress - Head Exam Head Exam: NORMAL INSPECTION - Eye Exam Eye Exam: Normal appearance - ENT Exam ENT Exam: Normal Exam - Neck Exam Neck Exam: Normal Inspection - Respiratory Exam Respiratory Exam: Clear to Ausculation Bilateral. absent: Rales, Rhonchi, Wheezes - Cardiovascular Exam Cardiovascular Exam: REGULAR RHYTHM, RRR, +S1, +S2. absent: Gallop, Rubs - GI/Abdominal Exam GI & Abdominal Exam: Soft, Normal Bowel Sounds. absent: Tenderness - Extremities Exam Extremities Exam: Normal Inspection. absent: Pedal Edema - Skin Skin Exam: Normal Color, Warm Assessment and Plan - Assessment and Plan (Free Text) Assessment: (1) Pneumonia Assessment & Plan: 05/18 IV Avelox, [facility] is pending 05/17: Continue Avelox. F/U placement for [facility] or jail 05/15: CXR on admission shows no acute disease. Continue Avelox per Dr. Coulter. Started on 05/11/16 Patient needs [facility]. - Case management referral. Previous note: Patient was admitted 05/10/16, she was given cefepime and Vancomycin in the Ed. Duoneb treatments, Spirivia, Advair, Singular. Solumedrol IV Robitussin for cough as needed. blood and urine cultures negative. Status: Acute (2) Chest Discomfort Assessment & Plan: ROME negative D dimer elevated WEll's criteria of 6 --> moderate risk for PE CTA negative for PE Tylenol added for chest pain Status: Chronic (3) HTN (hypertension) Assessment & Plan: Novasc 5mg daily Status: Chronic (4) Prophylactic measure Assessment & Plan: pepcid 20mg daily Lovenox 30mg SC D5 IV fluids. Awaiting call back from family to discuss [facility]/ jail Status: Acute
[2016-05-18 08:30] LABS: ALB/GLOB RATIO 1.2 (1.0-2.1); AST/SGOT 27 U/L (14-36); BILIRUBIN,TOTAL 0.5 mg/dL (0.2-1.3); CARBON DIOXIDE 32 mmol/L (22-30); GFR AFRICAN-AMERICAN > 60; TOTAL PROTEIN 6.4 g/dL (6.3-8.3)
[2016-05-18 08:31] LABS: ALKALINE PHOSPHATASE 73 U/L (38-126); ALT/SGPT 40 U/L (9-52); BLOOD UREA NITROGEN 21 mg/dL (7-17); CALCIUM 8.2 mg/dl (8.6-10.4); GLUCOSE,RANDOM 140 mg/dL (65-105)
[2016-05-18] MEDS: Fluticasone-Salmeterol 250-50mcg Diskus INH SCH ×2 (08:58→20:20)
[2016-05-18] MEDS: Tiotropium 18 mcg Cap For Inhalation INH SCH (08:58)
[2016-05-18] MEDS: Lidocaine 5% Patch TD SCH (11:13)
[2016-05-18] MEDS: Enoxaparin 30 mg Syringe SC SCH (11:13)
[2016-05-18] MEDS: Pantoprazole 40 mg EC Tab PO SCH (11:13)
[2016-05-18] MEDS: MethylPREDNISolone 40 mg Vial IV SCH ×2 (11:14→21:10)
[2016-05-18] MEDS: guaiFENesin DM 100 mg-10 mg/5 ml UD PO SCH ×4 (11:15→21:10)
[2016-05-19] MEDS: Albuterol-Ipratrop 3 mg / 0.5 (3 ml) UD INH SCH ×6 (00:11→19:33)
[2016-05-19] MEDS: Fluticasone-Salmeterol 250-50mcg Diskus INH SCH ×2 (08:38→19:34)
[2016-05-19 09:00] LABS: BASO % 0.1 % (0.0-2.0); HEMATOCRIT 38.5 % (34.0-47.0); LYMPH # 1.5 K/uL (1.0-4.3); LYMPH % 12.1 % (20.0-40.0); MEAN CELL VOLUME 93.5 fL (81.0-99.0); MEAN CORPUSCULAR HEMOGLOBIN 29.1 pg (27.0-31.0); MEAN CORPUSCULAR HGB CONC 31.1 g/dL (33.0-37.0); MONO # 0.6 K/uL (0.0-0.8); MONO % 4.8 % (0.0-10.0); RED CELL DISTRIBUTION WIDTH 13.2 % (11.5-14.5); WHITE BLOOD COUNT 12.4 K/uL (4.8-10.8)
[2016-05-19 09:11] LABS: CHLORIDE 92 mmol/L (98-107); SODIUM 139 mmol/L (132-148)
[2016-05-19 09:12] LABS: POTASSIUM 3.8 mmol/L (3.6-5.2)
[2016-05-19 09:14] LABS: ALB/GLOB RATIO 1.2 (1.0-2.1); ALKALINE PHOSPHATASE 69 U/L (38-126); ALT/SGPT 35 U/L (9-52); AST/SGOT 30 U/L (14-36); BILIRUBIN,TOTAL 0.5 mg/dL (0.2-1.3); BLOOD UREA NITROGEN 23 mg/dL (7-17); CARBON DIOXIDE 34 mmol/L (22-30); GFR AFRICAN-AMERICAN > 60; GLUCOSE,RANDOM 120 mg/dL (65-105); TOTAL PROTEIN 6.6 g/dL (6.3-8.3)
[2016-05-19] MEDS: Pantoprazole 40 mg EC Tab PO SCH (10:43)
[2016-05-19] MEDS: MethylPREDNISolone 40 mg Vial IV SCH ×2 (10:44→21:58)
[2016-05-19] MEDS: Enoxaparin 30 mg Syringe SC SCH (10:44)
[2016-05-19] MEDS: Lidocaine 5% Patch TD SCH (10:46)
[2016-05-19] MEDS: guaiFENesin DM 100 mg-10 mg/5 ml UD PO SCH ×4 (10:53→21:57)
--- NOTE | 2016-05-19 20:04 | CP.PCM.PN ---
Subjective - Date & Time of Evaluation Date of Evaluation: 05/19/16 Time of Evaluation: 10:00 - Subjective Subjective: Patient seen and examined in room. Unable to obtain ROS due to patient's hearing condition. Objective - Vital Signs/Intake and Output Vital Signs (last 24 hours): Temp Pulse Resp BP Pulse Ox 98.2 F 72 20 144/68 99 05/19/16 16:00 05/19/16 16:15 05/19/16 16:00 05/19/16 16:15 05/19/16 16:15 Intake and Output: 05/19/16 05/20/16 18:59 06:59 Intake Total 450 Balance 450 - Medications Medications: Current Medications Acetaminophen (Tylenol 325mg Tab) 650 mg PO Q6 PRN PRN Reason: Pain, moderate (4-7) Last Admin: 05/15/16 09:51 Dose: 650 mg Albuterol/Ipratropium (Duoneb 3 Mg/0.5 Mg (3 Ml) Ud) 3 ml INH RQ4 [facility] Last Admin: 05/19/16 19:33 Dose: 3 ml Amlodipine Besylate (Norvasc) 5 mg PO DAILY [facility] Last Admin: 05/19/16 10:43 Dose: 5 mg Enoxaparin Sodium (Lovenox) 30 mg SC DAILY [facility] Last Admin: 05/19/16 10:44 Dose: 30 mg Guaifenesin/Dextromethorphan (Robitussin Dm) 5 ml PO QID [facility] Last Admin: 05/19/16 18:22 Dose: 5 ml Lidocaine (Lidoderm) 1 ea TD DAILY [facility] Last Admin: 05/19/16 10:46 Dose: 1 ea Methylprednisolone (Solu-Medrol) 40 mg IV Q12 [facility] Last Admin: 05/19/16 10:44 Dose: 40 mg Montelukast Sodium (Singulair) 10 mg PO DAILY [facility] Last Admin: 05/19/16 10:44 Dose: 10 mg Moxifloxacin HCl (Avelox) 400 mg PO Q24H [facility] Last Admin: 05/18/16 19:58 Dose: 400 mg Pantoprazole Sodium (Protonix Ec Tab) 40 mg PO DAILY [facility] Last Admin: 05/19/16 10:43 Dose: 40 mg Fluticasone/Salmeterol (Advair Diskus 250/50) 1 puff INH RQ12 [facility] Last Admin: 05/19/16 19:34 Dose: 1 puff Tiotropium [place] (Spiriva) 18 mcg INH RQ24 [facility] Last Admin: 05/18/16 08:58 Dose: 18 mcg - Labs Labs: 05/19/16 08:55 05/19/16 08:55 PT 11.2 SECONDS (9.7-12.2) 05/10/16 16:41 INR 1.0 05/10/16 16:41 - Constitutional Appears: Non-toxic, No Acute Distress - Head Exam Head Exam: NORMAL INSPECTION - Eye Exam Eye Exam: Normal appearance Pupil Exam: NORMAL ACCOMODATION - Respiratory Exam Respiratory Exam: Clear to Ausculation Bilateral. absent: Rales, Rhonchi, Wheezes - Cardiovascular Exam Cardiovascular Exam: REGULAR RHYTHM, RRR, +S1, +S2. absent: Gallop, Rubs - GI/Abdominal Exam GI & Abdominal Exam: Soft, Normal Bowel Sounds. absent: Tenderness - Extremities Exam Extremities Exam: Normal Inspection - Back Exam Back Exam: NORMAL INSPECTION - Neurological Exam Neurological Exam: Alert - Skin Skin Exam: Normal Color, Warm Assessment and Plan - Assessment and Plan (Free Text) Assessment: (1) Pneumonia Assessment & Plan: 05/19 Patient to be discharged to [facility], but that is still pending. 05/18 IV Avelox, [facility] is pending 05/17: Continue Avelox. F/U placement for [facility] or senior living 05/15: CXR on admission shows no acute disease. Continue Avelox per Dr. Coulter. Started on 05/11/16 Patient needs [facility]. - Case management referral. Previous note: Patient was admitted 05/10/16, she was given cefepime and Vancomycin in the Ed. Duoneb treatments, Spirivia, Advair, Singular. Solumedrol IV Robitussin for cough as needed. blood and urine cultures negative. Status: Acute (2) Chest Discomfort Assessment & Plan: ROME negative D dimer elevated WEll's criteria of 6 --> moderate risk for PE CTA negative for PE Tylenol added for chest pain Status: Chronic (3) HTN (hypertension) Assessment & Plan: Novasc 5mg daily Status: Chronic (4) Prophylactic measure Assessment & Plan: pepcid 20mg daily Lovenox 30mg SC D5 IV fluids. Awaiting call back from family to discuss [facility]/ senior living Status: Acute
[2016-05-20] MEDS: Albuterol-Ipratrop 3 mg / 0.5 (3 ml) UD INH SCH ×3 (00:16→08:21)
[2016-05-20] MEDS: Fluticasone-Salmeterol 250-50mcg Diskus INH SCH (08:20)
[2016-05-20] MEDS: Tiotropium 18 mcg Cap For Inhalation INH SCH (08:20)
[2016-05-20 08:46] LABS: BASO % 0.1 % (0.0-2.0); HEMATOCRIT 35.1 % (34.0-47.0); LYMPH # 1.4 K/uL (1.0-4.3); LYMPH % 11.4 % (20.0-40.0); MEAN CELL VOLUME 93.1 fL (81.0-99.0); MEAN CORPUSCULAR HEMOGLOBIN 29.7 pg (27.0-31.0); MEAN CORPUSCULAR HGB CONC 31.9 g/dL (33.0-37.0); MEAN PLATELET VOLUME 6.9 fL (7.2-11.7); MONO # 0.6 K/uL (0.0-0.8); MONO % 4.4 % (0.0-10.0); RED CELL DISTRIBUTION WIDTH 13.4 % (11.5-14.5); WHITE BLOOD COUNT 12.7 K/uL (4.8-10.8)
[2016-05-20 08:51] LABS: CHLORIDE 93 mmol/L (98-107); POTASSIUM 3.7 mmol/L (3.6-5.2); SODIUM 139 mmol/L (132-148)
[2016-05-20 08:53] LABS: ALB/GLOB RATIO 1.3 (1.0-2.1); AST/SGOT 24 U/L (14-36); BILIRUBIN,TOTAL 0.6 mg/dL (0.2-1.3); CARBON DIOXIDE 34 mmol/L (22-30); GFR AFRICAN-AMERICAN > 60; TOTAL PROTEIN 5.9 g/dL (6.3-8.3)
[2016-05-20 08:54] LABS: ALKALINE PHOSPHATASE 72 U/L (38-126); ALT/SGPT 36 U/L (9-52); BLOOD UREA NITROGEN 25 mg/dL (7-17); CALCIUM 7.6 mg/dl (8.6-10.4); GLUCOSE,RANDOM 139 mg/dL (65-105)
[2016-05-20] MEDS: Enoxaparin 30 mg Syringe SC SCH (10:35)
[2016-05-20] MEDS: guaiFENesin DM 100 mg-10 mg/5 ml UD PO SCH ×4 (10:35→21:51)
[2016-05-20] MEDS: MethylPREDNISolone 40 mg Vial IV SCH ×2 (10:35→21:52)
[2016-05-20] MEDS: Lidocaine 5% Patch TD SCH (10:36)
[2016-05-20] MEDS: Pantoprazole 40 mg EC Tab PO SCH (10:36)
[2016-05-21] MEDS: Tiotropium 18 mcg Cap For Inhalation INH SCH (08:34)
[2016-05-21] MEDS: Fluticasone-Salmeterol 250-50mcg Diskus INH SCH (08:34)
[2016-05-21] MEDS: Enoxaparin 30 mg Syringe SC SCH (10:11)
[2016-05-21] MEDS: guaiFENesin DM 100 mg-10 mg/5 ml UD PO SCH ×4 (10:20→22:12)
[2016-05-21] MEDS: Pantoprazole 40 mg EC Tab PO SCH (10:20)
[2016-05-21] MEDS: MethylPREDNISolone 40 mg Vial IV SCH ×2 (10:21→22:12)
[2016-05-21] MEDS: Lidocaine 5% Patch TD SCH (14:06)
--- NOTE | 2016-05-22 08:36 | CP.PCM.PN ---
Subjective - Date & Time of Evaluation Date of Evaluation: 05/22/16 Time of Evaluation: 07:25 - Subjective Subjective: PGY2 Medicine Note - Dr. Coulter's service: Patient seen and examined at bedside this AM. Patient sleeping comfortably. ROS unable to be obtained secondary to language barrier and hearing loss. Objective - Vital Signs/Intake and Output Vital Signs (last 24 hours): Temp Pulse Resp BP Pulse Ox 97.9 F 84 19 121/69 96 05/21/16 23:51 05/22/16 00:18 05/21/16 23:51 05/21/16 23:51 05/21/16 23:51 Intake and Output: 05/22/16 05/22/16 06:59 18:59 Intake Total 450 Balance 450 - Medications Medications: Current Medications Acetaminophen (Tylenol 325mg Tab) 650 mg PO Q6 PRN PRN Reason: Pain, moderate (4-7) Last Admin: 05/15/16 09:51 Dose: 650 mg Amlodipine Besylate (Norvasc) 5 mg PO DAILY [facility] Last Admin: 05/21/16 10:11 Dose: 5 mg Enoxaparin Sodium (Lovenox) 30 mg SC DAILY [facility] Last Admin: 05/21/16 10:11 Dose: 30 mg Guaifenesin/Dextromethorphan (Robitussin Dm) 5 ml PO QID [facility] Last Admin: 05/21/16 22:12 Dose: 5 ml Lidocaine (Lidoderm) 1 ea TD DAILY [facility] Last Admin: 05/21/16 14:06 Dose: 1 ea Methylprednisolone (Solu-Medrol) 40 mg IV Q12 [facility] Last Admin: 05/21/16 22:12 Dose: 40 mg Montelukast Sodium (Singulair) 10 mg PO DAILY [facility] Last Admin: 05/21/16 10:26 Dose: 10 mg Pantoprazole Sodium (Protonix Ec Tab) 40 mg PO DAILY [facility] Last Admin: 05/21/16 10:20 Dose: 40 mg Fluticasone/Salmeterol (Advair Diskus 250/50) 1 puff INH RQ12 [facility] Last Admin: 05/21/16 08:34 Dose: 1 puff Tiotropium [place] (Spiriva) 18 mcg INH RQ24 [facility] Last Admin: 05/21/16 08:34 Dose: 18 mcg - Labs Labs: 05/20/16 08:30 05/20/16 08:30 PT 11.2 SECONDS (9.7-12.2) 05/10/16 16:41 INR 1.0 05/10/16 16:41 - Constitutional Appears: Non-toxic, No Acute Distress, Cachectic, Chronically Ill - Head Exam Head Exam: NORMAL INSPECTION - Eye Exam Eye Exam: EOMI - ENT Exam ENT Exam: Mucous Membranes Moist - Respiratory Exam Respiratory Exam: Clear to Ausculation Bilateral, NORMAL BREATHING PATTERN. absent: Rales, Rhonchi, Wheezes - Cardiovascular Exam Cardiovascular Exam: REGULAR RHYTHM, +S1, +S2. absent: Gallop, Rubs, Murmur - GI/Abdominal Exam GI & Abdominal Exam: Soft, Normal Bowel Sounds. absent: Firm, Guarding, Tenderness - Extremities Exam Extremities Exam: absent: Pedal Edema - Skin Skin Exam: Normal Color, Warm Assessment and Plan - Assessment and Plan (Free Text) Assessment: (1) Pneumonia Assessment & Plan: 05/22 Awaiting [facility] / group home placement 05/19 Patient to be discharged to [facility], but that is still pending. 05/18 IV Avelox, [facility] is pending 05/17: Continue Avelox. F/U placement for [facility] or group home 05/15: CXR on admission shows no acute disease. Continue Avelox per Dr. Coulter. Started on 05/11/16 Patient needs [facility]. - Case management referral. Previous note: Patient was admitted 05/10/16, she was given cefepime and Vancomycin in the Ed. Duoneb treatments, Spirivia, Advair, Singular. Solumedrol IV Robitussin for cough as needed. blood and urine cultures negative. Status: Acute (2) Chest Discomfort Assessment & Plan: ROME negative D dimer elevated WEll's criteria of 6 --> moderate risk for PE CTA negative for PE Tylenol and lidoderm patch added for chest pain Status: Chronic (3) HTN (hypertension) Assessment & Plan: Norvasc 5mg daily Status: Chronic (4) Prophylactic measure Assessment & Plan: pepcid 20mg daily Lovenox 30mg SC D5 IV fluids. Awaiting call back from family to discuss [facility]/ group home Status: Acute
[2016-05-22] MEDS: Lidocaine 5% Patch TD SCH (09:02)
[2016-05-22] MEDS: Enoxaparin 30 mg Syringe SC SCH (09:02)
[2016-05-22] MEDS: Pantoprazole 40 mg EC Tab PO SCH (09:03)
[2016-05-22] MEDS: MethylPREDNISolone 40 mg Vial IV SCH (09:03)
[2016-05-22] MEDS: Tiotropium 18 mcg Cap For Inhalation INH SCH (09:06)
[2016-05-22] MEDS: Fluticasone-Salmeterol 250-50mcg Diskus INH SCH (09:06)
[2016-05-22] MEDS: guaiFENesin DM 100 mg-10 mg/5 ml UD PO SCH ×2 (10:00→14:18)
[2016-05-22 11:03] VITALS: PULSE 79; RESP 20
[2016-05-22 12:20] LABS: BASO # 0.1 K/uL (0.0-0.2); BASO % 0.3 % (0.0-2.0); HEMATOCRIT 38.5 % (34.0-47.0); LYMPH # 2.3 K/uL (1.0-4.3); LYMPH % 14.3 % (20.0-40.0); MEAN CELL VOLUME 94.1 fL (81.0-99.0); MEAN CORPUSCULAR HEMOGLOBIN 30.1 pg (27.0-31.0); MEAN PLATELET VOLUME 7.4 fL (7.2-11.7); MONO # 0.6 K/uL (0.0-0.8); MONO % 3.8 % (0.0-10.0); NRBC % 0.1 % (0.0-2.0); RED CELL DISTRIBUTION WIDTH 13.7 % (11.5-14.5); WHITE BLOOD COUNT 15.9 K/uL (4.8-10.8)
[2016-05-22 12:32] LABS: CHLORIDE 92 mmol/L (98-107)
[2016-05-22 12:33] LABS: POTASSIUM 4.4 mmol/L (3.6-5.2); SODIUM 137 mmol/L (132-148)
[2016-05-22 12:35] LABS: ALB/GLOB RATIO 1.3 (1.0-2.1); ALKALINE PHOSPHATASE 90 U/L (38-126); AST/SGOT 28 U/L (14-36); BILIRUBIN,TOTAL 0.5 mg/dL (0.2-1.3); BLOOD UREA NITROGEN 27 mg/dL (7-17); CARBON DIOXIDE 33 mmol/L (22-30); GFR AFRICAN-AMERICAN > 60; GLUCOSE,RANDOM 137 mg/dL (65-105); TOTAL PROTEIN 6.3 g/dL (6.3-8.3)
[2016-05-22 12:36] LABS: ALT/SGPT 36 U/L (9-52)
[2016-05-22] MEDS ORDERED: Albuterol-Ipratrop 3 mg / 0.5 (3 ml) UD INH SCH (14:15)
[2016-05-22 17:20] VITALS: BP 139/75; TEMP 98; O2SAT 97
== END 2016-05-22 17:20 | DRG 190 ==
LOC: C.ER 14:31 → C.9E 17:53 → C.3T 18:38
PROVIDERS: ADMIT Internal Medicine Pulmonary Disease; ATTEND Internal Medicine Pulmonary Disease
DX: J44.0 Chronic obstructive pulmonary disease with (acute) lower respiratory infection (principal); J18.9 Pneumonia, unspecified organism; J45.909 Unspecified asthma, uncomplicated; I10 Essential (primary) hypertension; H91.90 Unspecified hearing loss, unspecified ear; F03.90 Unspecified dementia, unspecified severity, without behavioral disturbance, psychotic disturbance, mood disturbance, and anxiety

== ENCOUNTER 2016-06-08 23:01 | Inpatient (IN) | payer MEDICARE, MEDICAID ==
[2016-06-08 23:01] VITALS: BMI 18.9
--- NOTE | 2016-06-08 23:52 | C.PDOC ---
History Of Present Illness [place],was given tylenol. Unable to obtain any history from patient Time Seen by Provider: 06/08/16 23:52 Chief Complaint (Nursing): Flu-like Symptoms History Per: EMS History/Exam Limitations: clinical condition Onset/Duration Of Symptoms: Hrs Current Symptoms Are (Timing): Still Present Associated Symptoms: Fever, Chills Ear Symptoms: Bilateral: None Severity: Moderate Pain Scale Rating Of: 4 Recent travel outside of the [place]: No Additional History Per: EMS, [facility] Past Medical History Reviewed: Historical Data, Nursing Documentation, Vital Signs Vital Signs: Last Vital Signs Temp 99.4 F 06/09/16 01:09 Pulse 100 H 06/08/16 23:17 Resp 22 06/08/16 23:17 BP 120/60 06/08/16 23:17 Pulse Ox 92 L 06/09/16 01:22 - Medical History PMH: Arthritis, Asthma, COPD, HTN Denies: Chronic Kidney Disease Family History: States: No Known Family Hx - Social History Hx Alcohol Use: No Hx Substance Use: No - Immunization History Hx Tetanus Toxoid Vaccination: No Hx Influenza Vaccination: Yes Hx Pneumococcal Vaccination: Yes Review Of Systems Review Of Systems: ROS cannot be obtained secondary to pt's inabilty to answer questions. Constitutional: Negative for: Fever Physical Exam - Physical Exam Appears: Non-toxic Skin: Warm, Dry Head: Atraumatic Eye(s): bilateral: Normal Inspection Oral Mucosa: Dry Neck: Supple Chest: Symmetrical Cardiovascular: Rhythm Regular Respiratory: Decreased Breath Sounds, No Rales, Rhonchi, No Wheezing Gastrointestinal/Abdominal: Soft, No Tenderness, No Distention Extremity: Normal ROM, No Pedal Edema Extremity: Bilateral: Atraumatic Neurological/Psych: Other Disoriented To: Place, Time Gait: Unable To Assess ED Course And Treatment - Laboratory Results Result Diagrams: 06/08/16 23:56 06/08/16 23:56 ECG: Interpreted By Me, Viewed By Me ECG Rhythm: Sinus Rhythm (103), R BBB, Nonspecific Changes O2 Sat by Pulse Oximetry: 92 Pulse Ox Interpretation: Normal - Radiology CXR: Interpreted by Me, Viewed By Me CXR Interpretation: Yes: Other (stable rul mass unchanged from 05/10/16). No: Infiltrates, Fracture, Pnemothorax Progress Note: septic work up, ivf Critical Care Time - Critical Care Note Total Time (in mins): 30 Documented critical care: time excludes all time spent performing seperately billable procedures. Disposition Discussed With Dr.: Meryl Coulter Comment: accepted the pt on his service and took over the care at 1:21 AM Doctor Will See Patient In The: Hospital Counseled Patient/Family Regarding: Studies Performed, Diagnosis - Disposition Referrals: Meryl Coulter MD [Primary Care Provider] - Disposition: HOSPITALIZED Disposition Time: 23:52 Condition: FAIR - POA Present On Arrival: Poor Glycemic Control - Clinical Impression Clinical Impression: Fever, Hyponatremia, UTI (urinary tract infection) Decision To Admit - Pt Status Changed To: Hospital Disposition Of: Inpatient - Admit Certification Admit to Inpatient:: After my assessment, the patient will require hospitalization for at least two midnights. This is because of the severity of symptoms shown, intensity of services needed, and/or the medical risk in this patient being treated as an outpatient. - InPatient: Physician Admission Certification: I certify that this patient requires 2 or more midnights of care for the following reason:: After my assessment, the patient will require hospitalization for at least two midnights. This is because of the severity of symptoms shown, intensity of services needed, and/or the medical risk in this patient being treated as an outpatient. - . Bed Request Type: Regular Admitting Physician: Meryl Coulter Patient Diagnosis: Fever, Hyponatremia, UTI (urinary tract infection)
[2016-06-08 23:57] LABS: VENOUS BLOOD GAS BASE EXCESS 5.8 mmol/L (0.0-2.0); VENOUS BLOOD GAS PCO2 47 mmHg (40-60); VENOUS BLOOD PH 7.43 (7.32-7.43)
[2016-06-08 23:59] LABS: BASO % 0.4 % (0.0-2.0); HEMATOCRIT 34.3 % (34.0-47.0); LYMPH % 11.6 % (20.0-40.0); MEAN CELL VOLUME 93.2 fL (81.0-99.0); MEAN CORPUSCULAR HEMOGLOBIN 30.4 pg (27.0-31.0); MEAN CORPUSCULAR HGB CONC 32.6 g/dL (33.0-37.0); MEAN PLATELET VOLUME 6.9 fL (7.2-11.7); MONO % 11.5 % (0.0-10.0); RED CELL DISTRIBUTION WIDTH 15.3 % (11.5-14.5); WHITE BLOOD COUNT 8.9 K/uL (4.8-10.8)
[2016-06-09 00:09] LABS: CHLORIDE 92 mmol/L (98-107); SODIUM 130 mmol/L (132-148)
[2016-06-09 00:10] LABS: POTASSIUM 4.2 mmol/L (3.6-5.2)
[2016-06-09 00:12] LABS: ALB/GLOB RATIO 1.3 (1.0-2.1); ALKALINE PHOSPHATASE 71 U/L (38-126); AST/SGOT 28 U/L (14-36); BILIRUBIN,TOTAL 0.4 mg/dL (0.2-1.3); BLOOD UREA NITROGEN 19 mg/dL (7-17); CARBON DIOXIDE 30 mmol/L (22-30); GFR AFRICAN-AMERICAN > 60; GLUCOSE,RANDOM 112 mg/dL (65-105); PHOSPHOROUS 3.6 mg/dL (2.5-4.5); TOTAL PROTEIN 6.3 g/dL (6.3-8.3)
[2016-06-09 00:13] LABS: ALT/SGPT 21 U/L (9-52); CALCIUM 8.1 mg/dl (8.6-10.4); MAGNESIUM 2.1 mg/dL (1.6-2.3)
[2016-06-09 00:57] LABS: INR 0.9
[2016-06-09 01:01] LABS: RBC URINE 2 /hpf (0-3); URINE BACTERIA RARE (<OCC); URINE BILIRUBIN NEGATIVE (NEGATIVE); URINE BLOOD NEGATIVE (NEGATIVE); URINE COLOR Yellow (YELLOW); URINE GLUCOSE (UA) NORMAL (Normal); URINE KETONE NEGATIVE (NEGATIVE); URINE LEUKOCYTE ESTERASE 2+ Leu/uL (Negative); URINE PROTEIN NEGATIVE (NEGATIVE); URINE UROBILINOGEN NORMAL mg/dL (0.2-1.0); WBC URINE 50 /hpf (0-5)
[2016-06-09] MEDS ORDERED: Piperacillin/Tazobact 3.375 gm 100 ML IVPB STA (01:14)
[2016-06-09] MEDS ORDERED: Piperacillin/Tazobact 3.375 gm 100 ML IVPB ONE (01:30)
[2016-06-09] MEDS: Albuterol-Ipratrop 3 mg / 0.5 (3 ml) UD INH SCH ×5 (03:20→20:53)
--- NOTE | 2016-06-09 09:19 | RAD ---
HISTORY: Fever and shortness of breath COMPARISON: 05/10/2016 FINDINGS: LUNGS: Persistent ill-defined consolidative masslike opacity projecting over the right upper lung. Diffuse increased interstitial lung markings. Mild scattered nodularity in the right mid lung. Patchy left basilar airspace opacity. PLEURA: As above. CARDIOVASCULAR: Calcification at the aortic knob. OSSEOUS STRUCTURES: Degenerative changes in the spine and shoulders. VISUALIZED UPPER ABDOMEN: Normal. OTHER FINDINGS: None. IMPRESSION: Persistent ill-defined consolidative masslike opacity projecting over the right upper lung. Diffuse increased interstitial lung markings. Mild scattered nodularity in the right mid lung. Patchy left basilar airspace opacity.
[2016-06-09] MEDS: Lidocaine 5% Patch TD SCH (09:22)
[2016-06-09] MEDS: Pantoprazole 40 mg EC Tab PO SCH (09:24)
[2016-06-09] MEDS: Enoxaparin 30 mg Syringe SC SCH (09:29)
[2016-06-09] MEDS: guaiFENesin DM 100 mg-10 mg/5 ml UD PO SCH ×4 (10:59→22:30)
[2016-06-09] MEDS: Tiotropium 18 mcg Cap For Inhalation INH SCH (11:12)
[2016-06-09] MEDS: Fluticasone-Salmeterol 250-50mcg Diskus INH SCH (11:12)
--- NOTE | 2016-06-09 13:56 | CP.PCM.PN ---
Subjective - Date & Time of Evaluation Date of Evaluation: 06/09/16 Time of Evaluation: 07:30 - Subjective Subjective: Medicine Progress Note- Dr. Coulter's Service: Patient seen and examined at bedside. Patient's hearing loss makes ROS unobtainable. Patient was admitted from shelter overnight for fevers. No acute events overnight as per nursing. Objective - Vital Signs/Intake and Output Vital Signs (last 24 hours): Temp Pulse Resp BP Pulse Ox 97.5 F L 70 19 128/70 96 06/09/16 08:00 06/09/16 08:30 06/09/16 08:00 06/09/16 08:00 06/09/16 08:00 - Medications Medications: Current Medications Acetaminophen (Tylenol 650 Mg Supp) 650 mg CO Q4 PRN PRN Reason: Fever >100.4 F Albuterol/Ipratropium (Duoneb 3 Mg/0.5 Mg (3 Ml) Ud) 3 ml INH RQ4 [facility] Last Admin: 06/09/16 11:13 Dose: 3 ml Amlodipine Besylate (Norvasc) 5 mg PO DAILY [facility] Last Admin: 06/09/16 09:24 Dose: 5 mg Enoxaparin Sodium (Lovenox) 30 mg SC DAILY [facility] Last Admin: 06/09/16 09:29 Dose: 30 mg Guaifenesin/Dextromethorphan (Robitussin Dm) 5 ml PO QID [facility] Last Admin: 06/09/16 13:43 Dose: 5 ml Ceftriaxone Sodium 1 gm/ (Sodium Chloride) 100 mls @ 100 mls/hr IVPB DAILY [facility] Last Admin: 06/09/16 10:18 Dose: 100 mls/hr Lidocaine (Lidoderm) 1 ea TD DAILY [facility] Last Admin: 06/09/16 09:22 Dose: 1 ea Montelukast Sodium (Singulair) 10 mg PO DAILY [facility] Last Admin: 06/09/16 09:24 Dose: 10 mg Pantoprazole Sodium (Protonix Ec Tab) 40 mg PO DAILY [facility] Last Admin: 06/09/16 09:24 Dose: 40 mg Fluticasone/Salmeterol (Advair Diskus 250/50) 1 puff INH RQ12 [facility] Last Admin: 06/09/16 11:12 Dose: Not Given Tiotropium [place] (Spiriva) 18 mcg INH RQ24 [facility] Last Admin: 06/09/16 11:12 Dose: Not Given - Labs Labs: PT 10.3 SECONDS (9.7-12.2) 06/09/16 00:05 INR 0.9 06/09/16 00:05 APTT 35 SECONDS (21-34) H 06/09/16 00:05 - Constitutional Appears: No Acute Distress - Head Exam Head Exam: NORMAL INSPECTION, NORMOCEPHALIC - Eye Exam Eye Exam: EOMI, Normal appearance - ENT Exam ENT Exam: Mucous Membranes Moist - Neck Exam Neck Exam: Full ROM - Respiratory Exam Respiratory Exam: Clear to Ausculation Bilateral, NORMAL BREATHING PATTERN - Cardiovascular Exam Cardiovascular Exam: REGULAR RHYTHM, +S1, +S2 - GI/Abdominal Exam GI & Abdominal Exam: Soft. absent: Distended, Tenderness - Extremities Exam Extremities Exam: Full ROM, Normal Inspection - Back Exam Back Exam: NORMAL INSPECTION - Neurological Exam Neurological Exam: Alert, Awake, Oriented x3 - Psychiatric Exam Psychiatric exam: Normal Affect, Normal Mood - Skin Skin Exam: Dry, Normal Color, Warm Assessment and Plan - Assessment and Plan (Free Text) Assessment: (1)Fever Assessment & Plan: WBC 8.9.9 on admission. T Max 102 overnight. Patient with pneumonia as seen on CXR. Cough in the shelter. Patient also with UTI as UA was positive. f/u urine Cx. Will treat imperically: Add Azithromycin 500mg IVPB Q24H Continue Ceftriaxone 1 gm IVPB daily f/u CBC in the AM CXR on admission shows persistent ill-defined consolidative masslike opacity projecting over the right upper lung. Diffuse increased interstitial lung markings. Mild scattered nodularity in the right mid lung. Patchy left basilar airspace opacity. Status: Acute (2) Cavitating mass in right upper lung lobe Assessment & Plan: As seen on chest CT on 04/26/16. Patient with history of TB. IR consulted last visit for needle biopsy. However, per Dr. Donovan,there is a bronchiectasis right upper lobe, pleural thickening and volume loss with tracheal deviation. There is no mass seen for CT guided biopsy. . CT Chest w/o contrast 04/26: Complex partially cavitary necrotic right upper lobe mass. Likely inflammatory/infectious, neoplastic process ease are not excluded. Consolidative changes right middle lobe medial segment. Right hilar prominence, lymphadenopathy should be considered and is inseparable from an enlarged pulmonary artery. Contrast enhanced CT thorax if clinically indicated would resolve this issue. Status: Acute (3) COPD (chronic obstructive pulmonary disease) Assessment & Plan: Duonebs Q4H [facility] Advair Diskus 1 puff Q12H Sipiriva 18 mcg INH Q24H Status: Acute (4) HTN (hypertension) Assessment & Plan: Norvasc 5 mg PO daily Status: Acute (5) Prophylactic measure Assessment & Plan: Lovenox 30 mg SC daily Protonix 40 mg PO daily All management as per Dr. Coulter.
[2016-06-09] MEDS ORDERED: MethylPREDNISolone 40 mg Vial IVP ONE (15:24)
[2016-06-09] MEDS ORDERED: Albuterol-Ipratrop 3 mg / 0.5 (3 ml) UD INH STA (15:43)
[2016-06-10] MEDS: Albuterol-Ipratrop 3 mg / 0.5 (3 ml) UD INH SCH ×6 (00:12→20:01)
[2016-06-10 07:22] LABS: BASO % 0.3 % (0.0-2.0); HEMATOCRIT 35.5 % (34.0-47.0); LYMPH # 1.7 K/uL (1.0-4.3); LYMPH % 17.4 % (20.0-40.0); MEAN CELL VOLUME 93.3 fL (81.0-99.0); MEAN CORPUSCULAR HEMOGLOBIN 30.9 pg (27.0-31.0); MEAN CORPUSCULAR HGB CONC 33.2 g/dL (33.0-37.0); MEAN PLATELET VOLUME 7.3 fL (7.2-11.7); MONO # 0.9 K/uL (0.0-0.8); MONO % 9.6 % (0.0-10.0); RED CELL DISTRIBUTION WIDTH 14.9 % (11.5-14.5); WHITE BLOOD COUNT 9.8 K/uL (4.8-10.8)
[2016-06-10 07:25] LABS: CHLORIDE 93 mmol/L (98-107); POTASSIUM 3.1 mmol/L (3.6-5.2); SODIUM 137 mmol/L (132-148)
[2016-06-10 07:27] LABS: BILIRUBIN,TOTAL 0.3 mg/dL (0.2-1.3); CARBON DIOXIDE 31 mmol/L (22-30); GFR AFRICAN-AMERICAN > 60
[2016-06-10 07:28] LABS: ALB/GLOB RATIO 1.1 (1.0-2.1); ALKALINE PHOSPHATASE 73 U/L (38-126); ALT/SGPT 17 U/L (9-52); AST/SGOT 21 U/L (14-36); BLOOD UREA NITROGEN 13 mg/dL (7-17); CALCIUM 8.1 mg/dl (8.6-10.4); GLUCOSE,RANDOM 140 mg/dL (65-105); MAGNESIUM 2.1 mg/dL (1.6-2.3); PHOSPHOROUS 3.1 mg/dL (2.5-4.5); TOTAL PROTEIN 6.4 g/dL (6.3-8.3)
[2016-06-10] MEDS: Tiotropium 18 mcg Cap For Inhalation INH SCH (07:37)
[2016-06-10] MEDS: Fluticasone-Salmeterol 250-50mcg Diskus INH SCH (07:37)
[2016-06-10 08:32] VITALS: RESP 20
[2016-06-10] MEDS: Potassium Chloride 20 mEq 100 ML IVPB SCH ×2 (09:09→13:22)
[2016-06-10] MEDS: Pantoprazole 40 mg EC Tab PO SCH (09:10)
[2016-06-10] MEDS: Enoxaparin 30 mg Syringe SC SCH (09:10)
[2016-06-10] MEDS: Lidocaine 5% Patch TD SCH (10:35)
[2016-06-10] MEDS: guaiFENesin DM 100 mg-10 mg/5 ml UD PO SCH ×4 (10:39→21:30)
--- NOTE | 2016-06-10 13:36 | CARD ---
APPROVED REPORT EXAM: Two-dimensional and M-mode echocardiogram with Doppler and color Doppler. Other Information Quality : Technically LimitedRhythm : NSR Technically limited study due to body habitus. INDICATION Dyspnea Rheumatic Fever Congestive Heart Failure UTI, SOB, FEVER RISK FACTORS Hypertension M-Mode DIMENSIONS Left Atrium (MM)2.03 (2.5-4.0cm)IVSd0.73 (0.7-1.1cm) Aortic Root2.52 (2.2-3.7cm)LVDd3.50 (4.0-5.6cm) Aortic Cusp Exc.0.91 (1.5-2.0cm)PWd1.02 (0.7-1.1cm) FS (%) 30 %LVDs2.45 (2.0-3.8cm) LVEF (%)58 (>50%) Mitral Valve MV E Bqgxeufz91.2cm/sMV A Ryegkluu015.9cm/sE/A ratio0.6 TDI E/Lateral E'0.0E/Medial E'0.0 Tricuspid Valve TR Peak Xdgzbqsq236wy/sTR Peak Gr.[id number] <Conclusion> SUBOPTIMAL STUDY CAN NOT EVALUATE LV FUNCTION PLEASE CORRELATE WITH OTHER IMAGING MODALITY
[2016-06-10] MEDS: Azithromycin 500 MG in Sodium Chloride 0.9% 250 ML IVPB SCH (15:37)
[2016-06-11] MEDS: Albuterol-Ipratrop 3 mg / 0.5 (3 ml) UD INH SCH ×6 (01:44→19:41)
[2016-06-11 08:05] LABS: BASO % 0.4 % (0.0-2.0); LYMPH # 1.7 K/uL (1.0-4.3); LYMPH % 17.7 % (20.0-40.0); MEAN CELL VOLUME 93.9 fL (81.0-99.0); MEAN CORPUSCULAR HEMOGLOBIN 30.4 pg (27.0-31.0); MEAN CORPUSCULAR HGB CONC 32.4 g/dL (33.0-37.0); MEAN PLATELET VOLUME 7.4 fL (7.2-11.7); MONO # 0.9 K/uL (0.0-0.8); MONO % 9.4 % (0.0-10.0); RED CELL DISTRIBUTION WIDTH 15.2 % (11.5-14.5); WHITE BLOOD COUNT 9.7 K/uL (4.8-10.8)
[2016-06-11 08:13] LABS: CHLORIDE 96 mmol/L (98-107); SODIUM 136 mmol/L (132-148)
[2016-06-11 08:14] LABS: POTASSIUM 3.8 mmol/L (3.6-5.2)
[2016-06-11 08:15] LABS: GFR AFRICAN-AMERICAN > 60
[2016-06-11 08:16] LABS: ALB/GLOB RATIO 1.2 (1.0-2.1); ALKALINE PHOSPHATASE 78 U/L (38-126); ALT/SGPT 15 U/L (9-52); AST/SGOT 26 U/L (14-36); BILIRUBIN,TOTAL 0.5 mg/dL (0.2-1.3); BLOOD UREA NITROGEN 8 mg/dL (7-17); CARBON DIOXIDE 28 mmol/L (22-30); GLUCOSE,RANDOM 113 mg/dL (65-105); PHOSPHOROUS 3.1 mg/dL (2.5-4.5); TOTAL PROTEIN 6.6 g/dL (6.3-8.3)
[2016-06-11 08:17] LABS: CALCIUM 8.1 mg/dl (8.6-10.4); MAGNESIUM 2.1 mg/dL (1.6-2.3)
[2016-06-11] MEDS: Pantoprazole 40 mg EC Tab PO SCH (09:34)
[2016-06-11] MEDS: Enoxaparin 30 mg Syringe SC SCH (09:35)
[2016-06-11] MEDS: Lidocaine 5% Patch TD SCH (09:36)
[2016-06-11] MEDS: guaiFENesin DM 100 mg-10 mg/5 ml UD PO SCH ×4 (09:41→21:08)
[2016-06-11] MEDS: Tiotropium 18 mcg Cap For Inhalation INH SCH (11:45)
[2016-06-11] MEDS: Fluticasone-Salmeterol 250-50mcg Diskus INH SCH (11:45)
[2016-06-11] MEDS: Azithromycin 500 MG in Sodium Chloride 0.9% 250 ML IVPB SCH (14:04)
[2016-06-12] MEDS: Albuterol-Ipratrop 3 mg / 0.5 (3 ml) UD INH SCH ×5 (01:10→15:56)
[2016-06-12 07:21] LABS: BASO % 0.3 % (0.0-2.0); EOS % 0.1 % (0.0-4.0); HEMATOCRIT 32.5 % (34.0-47.0); LYMPH # 1.2 K/uL (1.0-4.3); LYMPH % 24.1 % (20.0-40.0); MEAN CELL VOLUME 92.5 fL (81.0-99.0); MEAN CORPUSCULAR HGB CONC 32.4 g/dL (33.0-37.0); MEAN PLATELET VOLUME 7.3 fL (7.2-11.7); MONO # 0.8 K/uL (0.0-0.8); MONO % 16.5 % (0.0-10.0); RED CELL DISTRIBUTION WIDTH 15.1 % (11.5-14.5); WHITE BLOOD COUNT 4.9 K/uL (4.8-10.8)
--- NOTE | 2016-06-12 07:27 | PN ---
DATE: 06/10/2016 The patient needs supportive care. Continue treatment. Meryl Crawford MD cc: [id number] TT: 06/11/2016 00:44:36 Confirmation # [id number] Dictation # [id number]
[2016-06-12 08:25] LABS: CHLORIDE 98 mmol/L (98-107); POTASSIUM 3.4 mmol/L (3.6-5.2); SODIUM 139 mmol/L (132-148)
[2016-06-12 08:27] LABS: BILIRUBIN,TOTAL 0.4 mg/dL (0.2-1.3); CARBON DIOXIDE 31 mmol/L (22-30); GFR AFRICAN-AMERICAN > 60
[2016-06-12 08:28] VITALS: BP 155/69; PULSE 93; TEMP 98.2; O2SAT 93
[2016-06-12 08:28] LABS: ALB/GLOB RATIO 1.2 (1.0-2.1); ALKALINE PHOSPHATASE 63 U/L (38-126); ALT/SGPT 15 U/L (9-52); AST/SGOT 23 U/L (14-36); BLOOD UREA NITROGEN 5 mg/dL (7-17); CALCIUM 8.2 mg/dl (8.6-10.4); GLUCOSE,RANDOM 101 mg/dL (65-105); PHOSPHOROUS 3.6 mg/dL (2.5-4.5); TOTAL PROTEIN 6.2 g/dL (6.3-8.3)
[2016-06-12 08:29] LABS: MAGNESIUM 2.2 mg/dL (1.6-2.3)
[2016-06-12] MEDS ORDERED: Potassium Chloride 20 mEq ER Tab PO ONE (08:29)
[2016-06-12] MEDS ORDERED: Albuterol-Ipratrop 3 mg / 0.5 (3 ml) UD INH STA (08:51)
[2016-06-12] MEDS: Enoxaparin 30 mg Syringe SC SCH (09:03)
[2016-06-12] MEDS: Lidocaine 5% Patch TD SCH (09:03)
[2016-06-12] MEDS: guaiFENesin DM 100 mg-10 mg/5 ml UD PO SCH ×2 (09:03→14:09)
[2016-06-12] MEDS: Pantoprazole 40 mg EC Tab PO SCH (09:04)
[2016-06-12] MEDS: Fluticasone-Salmeterol 250-50mcg Diskus INH SCH (10:16)
[2016-06-12] MEDS: Tiotropium 18 mcg Cap For Inhalation INH SCH (10:17)
--- NOTE | 2016-06-12 11:14 | CP.PCM.PN ---
Subjective - Date & Time of Evaluation Date of Evaluation: 06/12/16 Time of Evaluation: 11:00 - Subjective Subjective: Medicine Note- Dr. Coulter's service Patient was seen and examined at bedside. Patient reports no acute complaints at this time. Patient appeared comfortable, and in no acute distress, though she was occasionally coughing during exam and had some wheezing. No event sovernight, per nursing. Objective - Vital Signs/Intake and Output Vital Signs (last 24 hours): Temp Pulse Resp BP Pulse Ox 98.2 F 93 H 20 155/69 H 93 L 06/12/16 08:00 06/12/16 08:00 06/12/16 08:00 06/12/16 08:00 06/12/16 08:00 Intake and Output: 06/12/16 06/12/16 06:59 18:59 Intake Total 300 Balance 300 - Medications Medications: Current Medications Acetaminophen (Tylenol 650 Mg Supp) 650 mg HI Q4 PRN PRN Reason: Fever >100.4 F Acetaminophen (Tylenol 325mg Tab) 650 mg PO Q4 PRN PRN Reason: pain Last Admin: 06/12/16 06:50 Dose: 650 mg Albuterol/Ipratropium (Duoneb 3 Mg/0.5 Mg (3 Ml) Ud) 3 ml INH RQ4 [facility] Last Admin: 06/12/16 07:17 Dose: 3 ml Amlodipine Besylate (Norvasc) 5 mg PO DAILY [facility] Last Admin: 06/12/16 09:04 Dose: 5 mg Enoxaparin Sodium (Lovenox) 30 mg SC DAILY [facility] Last Admin: 06/12/16 09:03 Dose: 30 mg Guaifenesin/Dextromethorphan (Robitussin Dm) 5 ml PO QID [facility] Last Admin: 06/12/16 09:03 Dose: 5 ml Ceftriaxone Sodium 1 gm/ (Sodium Chloride) 100 mls @ 100 mls/hr IVPB DAILY [facility] Last Admin: 06/12/16 09:03 Dose: 100 mls/hr Azithromycin 500 mg/ Sodium (Chloride) 250 mls @ 250 mls/hr IVPB Q24H [facility] Last Admin: 06/11/16 14:04 Dose: 250 mls/hr Lidocaine (Lidoderm) 1 ea TD DAILY [facility] Last Admin: 06/12/16 09:03 Dose: 1 ea Montelukast Sodium (Singulair) 10 mg PO DAILY [facility] Last Admin: 06/12/16 09:03 Dose: 10 mg Pantoprazole Sodium (Protonix Ec Tab) 40 mg PO DAILY [facility] Last Admin: 06/12/16 09:04 Dose: 40 mg Fluticasone/Salmeterol (Advair Diskus 250/50) 1 puff INH RQ12 [facility] Last Admin: 06/12/16 10:16 Dose: Not Given Tiotropium Wy[place]x (Spiriva) 18 mcg INH RQ24 [facility] Last Admin: 06/12/16 10:17 Dose: Not Given - Labs Labs: 06/12/16 07:01 06/12/16 07:01 PT 10.3 SECONDS (9.7-12.2) 06/09/16 00:05 INR 0.9 06/09/16 00:05 APTT 35 SECONDS (21-34) H 06/09/16 00:05 - Constitutional Appears: Non-toxic, No Acute Distress - Head Exam Head Exam: ATRAUMATIC, NORMAL INSPECTION, NORMOCEPHALIC - Eye Exam Pupil Exam: NORMAL ACCOMODATION, PERRL - ENT Exam ENT Exam: Mucous Membranes Moist - Respiratory Exam Respiratory Exam: Wheezes, NORMAL BREATHING PATTERN. absent: Prolonged Expiratory Phase, Rales - Cardiovascular Exam Cardiovascular Exam: REGULAR RHYTHM, +S1, +S2 - GI/Abdominal Exam GI & Abdominal Exam: Soft, Normal Bowel Sounds. absent: Tenderness, Diminished Bowel Sounds, Hernia, Hypoactive Bowel Sounds - Extremities Exam Extremities Exam: Normal Capillary Refill, Normal Inspection - Neurological Exam Neurological Exam: Alert, Awake, Oriented x3 - Psychiatric Exam Psychiatric exam: Normal Affect, Normal Mood - Skin Skin Exam: Dry, Intact, Normal Color, Warm Assessment and Plan - Assessment and Plan (Free Text) Assessment: (1)Fever Assessment & Plan: WBC 8.9.9 on admission. No fevers for 4 days Patient with pneumonia as seen on CXR. Cough in the senior living. Patient also with UTI as UA was positive. f/u urine Cx. Continue Azithromycin 500mg IVPB Q24H Continue Ceftriaxone 1 gm IVPB daily CXR on admission shows persistent ill-defined consolidative masslike opacity projecting over the right upper lung. Diffuse increased interstitial lung markings. Mild scattered nodularity in the right mid lung. Patchy left basilar airspace opacity. Status: Acute (2) Cavitating mass in right upper lung lobe Assessment & Plan: As seen on chest CT on 04/26/16. Patient with history of TB. IR consulted last visit for needle biopsy. However, per Dr. Donovan,there is a bronchiectasis right upper lobe, pleural thickening and volume loss with tracheal deviation. There is no mass seen for CT guided biopsy. . CT Chest w/o contrast 04/26: Complex partially cavitary necrotic right upper lobe mass. Likely inflammatory/infectious, neoplastic process ease are not excluded. Consolidative changes right middle lobe medial segment. Right hilar prominence, lymphadenopathy should be considered and is inseparable from an enlarged pulmonary artery. Contrast enhanced CT thorax if clinically indicated would resolve this issue. Status: Acute (3) COPD (chronic obstructive pulmonary disease) Assessment & Plan: Duonebs Q4H [facility] Advair Diskus 1 puff Q12H Sipiriva 18 mcg INH Q24H Status: Acute (4) HTN (hypertension) Assessment & Plan: Norvasc 5 mg PO daily Status: Acute (5) Prophylactic measure Assessment & Plan: Lovenox 30 mg SC daily Protonix 40 mg PO daily All management as per Dr. Coulter. Patient will be discharged back to [facility], as per Dr. Coulter. Patient is to get a swallow evaluation while there.
[2016-06-12] MEDS: Azithromycin 500 MG in Sodium Chloride 0.9% 250 ML IVPB SCH (14:09)
--- NOTE | 2016-06-16 14:12 | CARD ---
APPROVED REPORT EKG Measurement Heart [id number] <Conclusion> Sinus tachycardia with occasional premature ventricular complexes Right atrial enlargement Right bundle branch block Abnormal ECG
--- NOTE | 2016-06-17 14:36 | CARD ---
APPROVED REPORT EKG Measurement Heart [id number] <Conclusion> Sinus tachycardia with premature atrial complexes Right bundle branch block Abnormal ECG
--- NOTE | 2016-07-17 08:34 | DS ---
The patient admitted to the hospital with chief complaint of generalized weakness, fatigue, tiredness . The patient placed on bedrest, supportive care, IV fluids. The patient transferred to rehab. Meryl Crawford MD cc: [phone] TT: 07/15/2016 13:53:18 tn
--- NOTE | 2016-07-17 08:34 | HP ---
The patient came to the hospital with chief complaint of generalized weakness, fatigue, tiredness, sh ortness of breath, chest pain. The patient has history of COPD. The patient with dementia. PHYSICAL EXAMINATION: GENERAL: The patient is awake, alert, oriented. VITAL SIGNS: Temperature 98, pulse 90. HEENT: Within normal limits. NECK: Supple. CHEST: Symmetrical. HEART: Regular. ABDOMEN: Soft. EXTREMITIES: No edema. The patient suffers from chronic obstructive pulmonary disease, dehydration. The patient bed rest, s upportive care. Meryl Crawford MD cc: [phone] TT: 07/15/2016 08:35:38 tn
== END 2016-06-12 17:00 | DRG 190 ==
LOC: SUPCPDRO 23:01 → C.ER 23:01 → C.3T 06-09 01:22 → C.5T 06-11 18:49
PROVIDERS: ADMIT Internal Medicine Pulmonary Disease; ATTEND Internal Medicine Pulmonary Disease
DX: J44.0 Chronic obstructive pulmonary disease with (acute) lower respiratory infection (principal); J18.9 Pneumonia, unspecified organism; N39.0 Urinary tract infection, site not specified; E87.1 Hypo-osmolality and hyponatremia; J45.909 Unspecified asthma, uncomplicated; I10 Essential (primary) hypertension; M19.90 Unspecified osteoarthritis, unspecified site; H91.90 Unspecified hearing loss, unspecified ear; Z86.11 Personal history of tuberculosis

== ENCOUNTER 2016-11-22 17:41 | Emergency (ER) | payer MEDICARE, MEDICAID ==
[2016-11-22 17:42] VITALS: BMI 18.9
--- NOTE | 2016-11-22 19:10 | C.PDOC ---
History Of Present Illness 89 y/o female brought to ED by daughter from a day pass at home. Patient is from [facility] and was having a day visit at daughter's house when daughter noticed bruising to left parietal scalp with associated headache. Patient has normal po intake but daughter is concerned for head injury which prompted visit to ed today. No other complaints at this time. Time Seen by Provider: 11/22/16 18:36 Chief Complaint (Nursing): Headache History Per: Patient, Family (daughter) History/Exam Limitations: no limitations Onset/Duration Of Symptoms: Days Current Symptoms Are (Timing): Still Present Past Medical History Reviewed: Historical Data, Nursing Documentation, Vital Signs Vital Signs: Last Vital Signs Temp 97.6 F 11/22/16 18:06 Pulse 87 11/22/16 18:06 Resp 20 11/22/16 18:06 BP 150/73 11/22/16 18:06 Pulse Ox 95 11/22/16 21:11 - Medical History PMH: Arthritis, Asthma, COPD, HTN Surgical History: No Surg Hx Family History: States: No Known Family Hx - Social History Hx Alcohol Use: No Hx Substance Use: No - Immunization History Hx Tetanus Toxoid Vaccination: No Hx Influenza Vaccination: Yes Hx Pneumococcal Vaccination: Yes Review Of Systems Except As Marked, All Systems Reviewed And Found Negative. Constitutional: Negative for: Fever, Chills Cardiovascular: Negative for: Chest Pain Gastrointestinal: Negative for: Nausea, Vomiting Skin: Negative for: Rash Neurological: Positive for: Headache Physical Exam - Physical Exam Appears: Non-toxic Skin: Warm, Dry, No Rash Head: Normacephalic, Swelling (soft tissue to left parietal scalp with bruising) Eye(s): bilateral: Normal Inspection, right: PERRL, EOMI, Abnormal Pupil, Conjunctiva Pale, Eyelid Inflammation, Photophobia, Scleral Icterus, Other Oral Mucosa: Moist Neck: Normal ROM, Supple Chest: Symmetrical Cardiovascular: Rhythm Regular, No Murmur Respiratory: Normal Breath Sounds, No Rales, No Rhonchi, No Wheezing Gastrointestinal/Abdominal: Soft, No Tenderness, No Guarding, No Rebound Extremity: Bilateral: Atraumatic Neurological/Psych: Oriented x3, Normal Speech, Normal Cognition, Normal Motor, Normal Sensation ED Course And Treatment O2 Sat by Pulse Oximetry: 95 (RA) Pulse Ox Interpretation: Normal Progress Note: Impression: 1. No acute intracranial findings. No change from . 2. There is mild soft tissue swelling noted over the left posterior parietal calvarium near the high convexity. 3. Chronic microvascular ischemic change. Disposition Counseled Patient/Family Regarding: Studies Performed, Diagnosis, Need For Followup - Disposition Referrals: Meryl Coulter MD [Staff Provider] - Disposition: TRANSF TO SNF Disposition Time: 21:14 Condition: STABLE Instructions: Scalp Contusion in Adults (ED) Forms: [email or web address] ([place]) - Clinical Impression Clinical Impression: Scalp contusion - Scribe Statement The provider has reviewed the documentation as recorded by the Scribe Desean Singh All medical record entries made by the Moraimaibe were at my direction and personally dictated by me. I have reviewed the chart and agree that the record accurately reflects my personal performance of the history, physical exam, medical decision making, and the department course for this patient. I have also personally directed, reviewed, and agree with the discharge instructions and disposition.
--- NOTE | 2016-11-22 21:03 | CT ---
EXAM: CT Head Without Intravenous Contrast EXAM DATE/TIME: Exam ordered 11/22/2016 6:41 PM CLINICAL HISTORY: 89 years old, female; Injury or trauma; Fall; Initial encounter; Concussion / head injury TECHNIQUE: Axial computed tomography images of the head/brain without intravenous contrast. All CT scans at this facility use one or more dose reduction techniques, viz.: automated exposure control; ma/kV adjustment per patient size (including targeted exams where dose is matched to indication; i.e. head); or iterative reconstruction technique. COMPARISON: No relevant prior studies available. FINDINGS: Brain: There is age-appropriate cortical atrophy. No densities noted within the periventricular white matter extending into the esparza radiata and centrum semi-ovale bilaterally. Faint basal ganglia calcifications are noted. No hemorrhage. No edema. Ventricles: Unremarkable. No ventriculomegaly. Bones/joints: Unremarkable. No acute fracture. Soft tissues: There is mild soft tissue swelling is noted over the left posterior parietal calvarium near the high convexity Sinuses: Unremarkable as visualized. No acute sinusitis. Mastoid air cells: Unremarkable as visualized. No mastoid effusion. IMPRESSION: 1. No acute intracranial findings. No change from 04/26/2016. 2. There is mild soft tissue swelling is noted over the left posterior parietal calvarium near the high convexity 3. Chronic microvascular ischemic change
[2016-11-23] MEDS ORDERED: Albuterol-Ipratrop 3 mg / 0.5 (3 ml) UD ONE (00:30)
[2016-11-23 01:03] VITALS: BP 146/78; O2SAT 99
[2016-11-23 02:59] VITALS: PULSE 80; RESP 20; TEMP 98.1
== END 2016-11-23 02:59 ==
LOC: C.ER 17:41
DX: S00.03XA Contusion of scalp, initial encounter (principal); X58.XXXA Exposure to other specified factors, initial encounter; Y92.129 Unspecified place in nursing home as the place of occurrence of the external cause

== ENCOUNTER 2017-03-09 19:35 | Inpatient (IN) | payer MEDICARE, MEDICAID ==
[2017-03-09 19:35] VITALS: BMI 18.9
[2017-03-09 19:56] LABS: BASO # 0.1 K/uL (0.0-0.2); BASO % 0.8 % (0.0-2.0); EOS % 0.3 % (0.0-4.0); HEMOGLOBIN 12.7 g/dL (11.0-16.0); LYMPH # 1.2 K/uL (1.0-4.3); LYMPH % 8.2 % (20.0-40.0); MEAN CELL VOLUME 94.2 fL (81.0-99.0); MEAN CORPUSCULAR HEMOGLOBIN 32.3 pg (27.0-31.0); MEAN CORPUSCULAR HGB CONC 34.2 g/dL (33.0-37.0); MONO # 1.2 K/uL (0.0-0.8); MONO % 7.9 % (0.0-10.0); NEUT # 12.4 K/uL (1.8-7.0); NEUT % 82.8 % (50.0-75.0); PLATELET COUNT 327 K/uL (130-400); RBC 3.95 Mil/uL (3.80-5.20); RED CELL DISTRIBUTION WIDTH 12.9 % (11.5-14.5)
[2017-03-09 20:08] LABS: ALB/GLOB RATIO 1.1 (1.0-2.1); ALT/SGPT 13 U/L (9-52); AST/SGOT 27 U/L (14-36); BLOOD UREA NITROGEN 13 mg/dL (7-17); CALCIUM 8.1 mg/dl (8.6-10.4); GFR AFRICAN-AMERICAN > 60; GFR NON-AFRICAN AMERICAN > 60; MAGNESIUM 1.9 mg/dL (1.6-2.3)
[2017-03-09 20:09] LABS: VENOUS BLOOD GAS BASE EXCESS 0.1 mmol/L (0.0-2.0); VENOUS BLOOD GAS PCO2 58 mmHg (40-60); VENOUS BLOOD GAS PO2 69 mm/Hg (30-55); VENOUS BLOOD PH 7.29 (7.32-7.43)
[2017-03-09 20:20] LABS: B-TYPE NATRIURETIC PEPTIDE 748 pg/mL (0-900)
[2017-03-09] MEDS ORDERED: MethylPREDNISolone 40 mg Vial IVP STA (20:35)
[2017-03-09] MEDS: Albuterol-Ipratrop 3 mg / 0.5 (3 ml) UD IH SCH (20:59)
[2017-03-09] MEDS ORDERED: Piperacillin/Tazobact 3.375 gm 100 ML IVPB STA (21:12)
[2017-03-09 21:15] LABS: BANDS 4 % (0-2); LYMPHOCYTE 8 % (20-40); MONOCYTE 4 % (0-10); NEUTROPHIL 84 % (50-75); TOTAL CELLS COUNTED 100
[2017-03-09 21:16] LABS: PLATELET ESTIMATE NORMAL (NORMAL)
--- NOTE | 2017-03-09 21:50 | C.PDOC ---
Time Seen by Provider: 03/09/17 19:39 Chief Complaint (Nursing): Respiratory Distress History Per: Patient, Other ([facility] records) History/Exam Limitations: clinical condition Onset/Duration Of Symptoms: Hrs (?) Current Symptoms Are (Timing): Still Present Severity: Severe Additional History Per: Group Home, Prior Records Past Medical History Reviewed: Historical Data, Nursing Documentation, Vital Signs Vital Signs: Last Vital Signs Temp 98.6 F 03/09/17 19:39 Pulse 106 H 03/09/17 20:01 Resp 28 H 03/09/17 20:01 BP 181/81 H 03/09/17 20:01 Pulse Ox 99 03/09/17 20:01 - Medical History PMH: Arthritis, Asthma, COPD, HTN Family History: States: Unknown Family Hx - Social History Hx Alcohol Use: No Hx Substance Use: No - Immunization History Hx Tetanus Toxoid Vaccination: No Hx Influenza Vaccination: Yes Hx Pneumococcal Vaccination: Yes Review Of Systems Review Of Systems: ROS cannot be obtained secondary to pt's inabilty to answer questions. Physical Exam - Physical Exam Appears: In Acute Distress, Agitated, Chronically Ill Skin: Normal Color, Warm, Dry Head: Atraumatic Eye(s): bilateral: PERRL, EOMI Neck: Normal ROM, Supple Cardiovascular: Rhythm Regular (tachycardia) Respiratory: Rales (diffuse) Gastrointestinal/Abdominal: Soft, No Tenderness Extremity: Normal ROM Neurological/Psych: Inappropriate Response To Command, Other (Moving all extremities) ED Course And Treatment - Laboratory Results Result Diagrams: 03/09/17 19:53 03/09/17 19:53 Interpretation Of Abnormal: Leukocytosis O2 Sat by Pulse Oximetry: 99 - Radiology CXR: Interpreted by Me, Viewed By Me CXR Interpretation: Yes: No Acute Disease, Infiltrates (right upper lobe, unchanged from prior) Progress Note: Pt was placed on BiPAP upon arrival to the ED with some improvement. Progress - Interventions Interventions:: Observation, Oxygen - Medications Administered Inhaled nebulized: Anticholinergic, Beta-2 agonist Intravenous: Corticosteroid - Data Reviewed Data Reviewed: Lab, Diagnostic imaging, Old records - Patient Status Patient status: Partially improved - Critical Care Citical Care: Excluding Proc Time Critical Care Time: 45 minutes - Continuity of Care Discussed patient case with:: Patient, Family-HIPPA compliant, ED Nurse, PMD - Patient Plan Patient Plan: Admission, Telemetry Disposition Discussed With : Meryl Coulter Comment: He accepted pt on his service and gave admitting orders to the nurse. Doctor Will See Patient In The: Hospital Counseled Patient/Family Regarding: Studies Performed, Diagnosis - Disposition Disposition: HOSPITALIZED Disposition Time: 21:52 Condition: SERIOUS - Clinical Impression Clinical Impression: COPD exacerbation, Respiratory distress, Pneumonia
[2017-03-10] MEDS ORDERED: Piperacillin/Tazobact 3.375 GM in Sodium Chloride 100 ML IVPB SCH (00:45)
[2017-03-10] MEDS ORDERED: Nitroglycerin 2% Ointment Foilpak UD TOP ONE (02:27)
[2017-03-10] MEDS ORDERED: Albuterol-Ipratrop 3 mg / 0.5 (3 ml) UD INH STA (03:01)
[2017-03-10] MEDS ORDERED: Piperacill/Tazo 3.375gm in Dex 3.375 GM/50 ML BAG IVPB SCH (03:15)
[2017-03-10 03:32] LABS: ABG ALLEN TEST POS; ARTERIAL BLOOD GAS HCO3 19.9 mmol/L (21-28); ARTERIAL BLOOD GAS HEMOGLOBIN 11.2 g/dL (11.7-17.4); ARTERIAL BLOOD GAS O2 SAT 100.3 % (95-98); ARTERIAL BLOOD GAS PCO2 41 mm/Hg (35-45); ARTERIAL BLOOD GAS PH 7.29 (7.35-7.45); ARTERIAL BLOOD GAS PO2 421 mm/Hg (80-100)
[2017-03-10] MEDS ORDERED: Iodixanol 320 MG/ML 100 ML BOTTLE IV ONE (03:34)
--- NOTE | 2017-03-10 03:39 | CP.PCM.CON ---
History of Present Illness - History of Present Illness History of Present Illness: 89 y/o female ,[place] resident with h/o Dementia,Arthritis, Asthma/ COPD, HTN sent to ER for Shortness of breath.In ER patient was in distress ,placed on BIPAP.Rapid response called from 6T for respiratory distress history from chart Pt is DNR/DNI Review of Systems - Review of Systems Review of Systems: unable to get review from patient Past Patient History - Infectious Disease Hx of Infectious Diseases: None - Past Medical History & Family History Past Medical History?: Yes - Past Social History Smoking Status: Never Smoked - CARDIAC Hx Hypertension: Yes - PULMONARY Hx Asthma: Yes Hx Chronic Obstructive Pulmonary Disease (COPD): Yes - NEUROLOGICAL Hx Neurological Disorder: No - HEENT Hx HEENT Problems: No - RENAL Hx Chronic Kidney Disease: No - ENDOCRINE/METABOLIC Hx Endocrine Disorders: No - HEMATOLOGICAL/ONCOLOGICAL Hx Blood Disorders: No - INTEGUMENTARY Hx Dermatological Problems: No - MUSCULOSKELETAL/RHEUMATOLOGICAL Hx Arthritis: Yes - GASTROINTESTINAL Hx Gastrointestinal Disorders: Yes Hx Gastroesophageal Reflux: Yes Other/Comment: Endoscopy showed Polyps. - GENITOURINARY/GYNECOLOGICAL Hx Genitourinary Disorders: No - PSYCHIATRIC Hx Substance Use: No - SURGICAL HISTORY Hx Surgeries: No - ANESTHESIA Hx Anesthesia: Yes Hx Anesthesia Reactions: No Hx Malignant Hyperthermia: No Meds Allergies/Adverse Reactions: Allergies Allergy/AdvReac Type Severity Reaction Status Date / Time No Known Allergies Allergy Verified 03/09/17 19:44 - Medications Medications: Current Medications Acetaminophen (Tylenol 325mg Tab) 650 mg PO Q6 PRN PRN Reason: for pain and Temp.over 101 Albuterol/Ipratropium (Duoneb 3 Mg/0.5 Mg (3 Ml) Ud) 3 ml INH RQ4 [facility] Amlodipine Besylate (Norvasc) 5 mg PO DAILY [facility] Piperacillin Sod/Tazobactam Sod (Zosyn 3.375 Gm Iv Premix) 3.375 gm in 50 mls @ 100 mls/hr IVPB Q6H [facility] Lorazepam (Ativan) 0.5 mg IVP Q12H PRN PRN Reason: Anxiety Methylprednisolone (Solu-Medrol) 40 mg IV Q6 [facility] Montelukast Sodium (Singulair) 10 mg PO DAILY [facility] Fluticasone/Salmeterol (Advair Diskus 250/50) 1 puff IH RQ12 [facility] Physical Exam - Constitutional Appears: In Acute Distress, Agitated, Confused - Head Exam Head Exam: ATRAUMATIC, NORMAL INSPECTION, NORMOCEPHALIC - Eye Exam Eye Exam: Normal appearance, PERRL. absent: Scleral icterus - ENT Exam ENT Exam: Mucous Membranes Dry - Neck Exam Neck exam: Positive for: Normal Inspection - Respiratory Exam Respiratory Exam: Accessory Muscle Use, Rales, Respiratory Distress - Cardiovascular Exam Cardiovascular Exam: Tachycardia, JVD - GI/Abdominal Exam GI & Abdominal Exam: Normal Bowel Sounds, Soft - Extremities Exam Extremities exam: Positive for: normal inspection. Negative for: pedal edema Additional comments: moves all extremities - Neurological Exam Neurological exam: Altered - Skin Skin Exam: Warm Results - Vital Signs Recent Vital Signs: Last Vital Signs Temp 97.9 F 03/10/17 01:26 Pulse 96 H 03/10/17 01:26 Resp 28 H 03/10/17 01:26 BP 138/70 03/10/17 01:26 Pulse Ox 98 03/10/17 01:26 - Labs Result Diagrams: 03/09/17 19:53 03/09/17 19:53 Labs: Laboratory Results - last 24 hr 03/09/17 03/09/17 03/09/17 19:52 19:53 19:53 WBC 15.0 H D RBC 3.95 Hgb 12.7 D Hct 37.2 MCV 94.2 MCH 32.3 H MCHC 34.2 RDW 12.9 Plt Count 327 MPV 7.0 L Neut % (Auto) 82.8 H Lymph % (Auto) 8.2 L Todd % (Auto) 7.9 Eos % (Auto) 0.3 Baso % (Auto) 0.8 Neut # 12.4 H Lymph # 1.2 Todd # 1.2 H Eos # 0.0 Baso # 0.1 Neutrophils % (Manual) 84 H Band Neutrophils % 4 H Lymphocytes % (Manual) 8 L Monocytes % (Manual) 4 Platelet Estimate Normal RBC Morphology Normal Puncture Site pCO2 pO2 69 H HCO3 ABG pH ABG Total CO2 ABG O2 Saturation ABG Base Excess ABG Hemoglobin ABG Carboxyhemoglobin POC ABG HHb (Measured) ABG Methemoglobin Diony Test VBG pH 7.29 L VBG pCO2 58 VBG HCO3 24.8 VBG Total CO2 29.7 H VBG O2 Sat (Calc) 95.4 H VBG Base Excess 0.1 VBG Potassium 5.1 A-a O2 Difference Respiratory Index Hgb O2 Saturation Sodium 137.0 131 L Chloride 100.0 95 L Glucose 107 H Lactate 1.3 Vent Mode FiO2 Inspiratory BiPAP Expiratory BiPAP Potassium 4.5 Carbon Dioxide 27 Anion Gap 14 BUN 13 Creatinine 0.8 Est GFR ( Amer) > 60 Est GFR (Non-Af Amer) > 60 Random Glucose 114 H Calcium 8.1 L Magnesium 1.9 Total Bilirubin 0.5 AST 27 ALT 13 Alkaline Phosphatase 73 Troponin I 0.0340 NT-Pro-B Natriuret Pep 748 Total Protein 7.7 Albumin 4.0 Globulin 3.7 Albumin/Globulin Ratio 1.1 Venous Blood Potassium 5.1 03/10/17 03:20 WBC RBC Hgb Hct MCV MCH MCHC RDW Plt Count MPV Neut % (Auto) Lymph % (Auto) Todd % (Auto) Eos % (Auto) Baso % (Auto) Neut # Lymph # Todd # Eos # Baso # Neutrophils % (Manual) Band Neutrophils % Lymphocytes % (Manual) Monocytes % (Manual) Platelet Estimate RBC Morphology Puncture Site Lr pCO2 41 pO2 421 H HCO3 19.9 L ABG pH 7.29 L ABG Total CO2 21.0 L ABG O2 Saturation 100.3 H ABG Base Excess -6.5 L ABG Hemoglobin 11.2 L ABG Carboxyhemoglobin 1.1 POC ABG HHb (Measured) -0.3 L ABG Methemoglobin 1.0 Diony Test Pos VBG pH VBG pCO2 VBG HCO3 VBG Total CO2 VBG O2 Sat (Calc) VBG Base Excess VBG Potassium A-a O2 Difference 241.0 Respiratory Index 0.6 Hgb O2 Saturation 98.2 H Sodium Chloride Glucose Lactate Vent Mode Bipap FiO2 100.0 Inspiratory BiPAP 12 Expiratory BiPAP 7 Potassium Carbon Dioxide Anion Gap BUN Creatinine Est GFR ( Amer) Est GFR (Non-Af Amer) Random Glucose Calcium Magnesium Total Bilirubin AST ALT Alkaline Phosphatase Troponin I NT-Pro-B Natriuret Pep Total Protein Albumin Globulin Albumin/Globulin Ratio Venous Blood Potassium - Imaging and Cardiology Chest x-ray Status: Image reviewed by me Assessment & Plan - Assessment and Plan (Free Text) Assessment: 1.Respiratory failure/ Exacerbation of COPD/Pneumonia, ?CHF Chronic fibrotic changes on CT chest 04/2016 -tachypneic on BIPAP,received IV lasix On antibitics for CT chest 2.Dementia 3.HTN-cont meds
[2017-03-10] MEDS ORDERED: Iohexol 240 (50 ml) PO ONE (03:45)
[2017-03-10] MEDS ORDERED: Heparin25000 units/250ml 1/2NS 25,000 UNITS/250 ML BAG IV PRN (04:46)
--- NOTE | 2017-03-10 05:00 | CT ---
EXAM: CT Angiography Chest With Intravenous Contrast CLINICAL HISTORY: 89 years old, female; Pain and signs and symptoms; Shortness of breath; Chest pain; Patient HX: 05-16-16; Additional info: R/O pe. Rapid respond TECHNIQUE: Axial computed tomographic angiography images of the chest with intravenous contrast using pulmonary embolism protocol. All CT scans at this facility use one or more dose reduction techniques, viz.: automated exposure control; ma/kV adjustment per patient size (including targeted exams where dose is matched to indication; i.e. head); or iterative reconstruction technique. 759 images are submitted. MIP reconstructed images were created and reviewed. Coronal and sagittal reformatted images were created and reviewed. CONTRAST: 100 mL of [id number] administered intravenously. COMPARISON: CT - ANGIO CHEST PE PROTOCOL 2016-05-16 10:13 FINDINGS: Pulmonary arteries: There is bilateral main pulmonary artery pulmonary embolus extending into the bilateral upper, lower lobes, lingula and right middle lobe representing pulmonary embolus. There is facet embolus across the branches of right lower lobe and left main pulmonary artery extending into the branches. Aorta: The aorta demonstrates calcified plaque and is mildly ectatic but normal in caliber. The ectatic ascending aorta measures 3.7 cm. No thoracic aortic aneurysm. Lungs: There is posterior the right upper lobe pleural parenchymal infiltrate and consolidation with volume loss. Right middle lobe and inferior left upper lobe and lingular nodular infiltration representing sequela of infectious inflammatory etiology. Correlation with patient's clinical diagnosis is recommended if an active pulmonary process is clinically suspected. COPD. Pleural space: Unremarkable. No significant effusion. No pneumothorax. Heart: Left ventricular hypertrophy. Cardiomegaly. Mediastinum: Small hiatal hernia. Bones/joints: No acute fracture. No dislocation. Soft tissues: Unremarkable. Lymph nodes: Unremarkable. No enlarged lymph nodes. Adrenals: The adrenal glands are not well seen. Stomach and bowel: Nonspecific gastric thickening likely due to under distention. Correlation with clinical data is recommended if gastritis is suspected. Other findings: CRITICAL RESULT: The study was personally discussed on the telephone with Lee Vernon on 03/10/2017 4:57 AM EST. The results were understood and acknowledged. IMPRESSION: 1. There is bilateral main pulmonary artery pulmonary embolus extending into the bilateral upper, lower lobes, lingula and right middle lobe representing pulmonary embolus. 2. There is posterior the right upper lobe pleural parenchymal infiltrate and consolidation with volume loss. Right middle lobe and inferior left upper lobe and lingular nodular infiltration representing sequela of infectious inflammatory etiology. Correlation with patient's clinical diagnosis is recommended if an active pulmonary process like pneumonia versus aspiration pneumonia is clinically suspected. The possibility of neoplastic process cannot be excluded. The inferior left upper lobe and lingular infiltrate is new when compared to prior examination.
--- NOTE | 2017-03-10 05:07 | PCM.RRT ---
<Lee Fernandez - Last Filed: 03/10/17 05:02> RIP MACHINE OPERATOR Nurses Assessment - Situation Date: 03/10/17 Time RIP MACHINE OPERATOR was called: 02:19 RIP MACHINE OPERATOR Responder Arrival Time:: 02:20 RIP MACHINE OPERATOR Location:: Med/Surg Room Number: 672A RIP MACHINE OPERATOR Reason for Call: Respiratory Distress (Respiratory Rate 45-50) - IV IV Inserted during RIP MACHINE OPERATOR?: Yes IV Fluids Initiated During RIP MACHINE OPERATOR?: NO New IV Insertion Tolerance: Excellent - Respiratory RIP MACHINE OPERATOR Delivery Method: BiPAP @% (50%. 11/27) Received Nebulizer Treatments: No Was the Patient Ventilated with Bag/Mask 100% O2?: No Secretions Suctioned?: Yes Was the Patient Intubated?: No Was the Patient Placed on a Ventilator?: No - Ventilator Settings FIO2 (% Oxygen): 50 - Diagnostic Test Ordered EKG: No Chest X-Ray: Yes (No major change from previous CXR. ) CT Scan: Yes (Showed PE) - Stat Labs Ordered RIP MACHINE OPERATOR Stat Labs Ordered: ABG CPR started during RIP MACHINE OPERATOR?: No - Time RIP MACHINE OPERATOR Ended Time RIP MACHINE OPERATOR Ended: 02:50 - Recommendations 5) RIP MACHINE OPERATOR Level of Care Recommendations: Transfer to ICU Notifications: Family or Designated Caregiver (Daughter Notified. ) I.Reason for RIP MACHINE OPERATOR - A) Acute Change in Patient: (Select all that apply): Acute change in respiratory rate less than 8 or greater than 28 - Neurological Status (Select all that apply): Responsive - Respiratory Oxygen Delivery Method: BiPAP @% - Constitutional Appears: In Acute Distress - Head Head Exam: ATRAUMATIC, NORMAL INSPECTION, NORMOCEPHALIC - Eyes Eye Exam: Normal appearance - Respiratory Exam Respiratory Exam: Accessory Muscle Use, Rales (Diffuse) - Cardiovascular Exam Cardiovascular Exam: Tachycardia, +S1, +S2. absent: Murmur - GI/Abdominal Exam GI & Abdominal Exam: Soft. absent: Tenderness - Extremities Exam Extremities Exam: Normal Capillary Refill. absent: Pedal Edema Plan - Assessment of Findings&Treatment Plan RIP MACHINE OPERATOR Called for Tachypnea Intian Vitals: P=101, BP, 190/78, RR-44, O2 98% on BIPAP -BIPAP changed from 10/5 to 12/7 -40mg IV lasix given -NitroPaste, taken off after about 5 minutes -Portable CXR -CTA of the chest ordered. It showed PE -Bolus of Heparin given then started on a Heparin Drip <Keswani,Bairon P - Last Filed: 03/10/17 20:06> RIP MACHINE OPERATOR Nurses Assessment - Vital Signs Vital Signs: Rapid Response Vital Sign Blood Pressure 190/94 Pulse Rate 170 Respiratory Rate 47 Temperature 97.6 F Oxygen Saturation 97 - Vital Signs at end of RIP MACHINE OPERATOR Vital Signs at end of RIP MACHINE OPERATOR: Rapid Response End Vital Sign Blood Pressure 163/85 Pulse Rate 113 Respiratory Rate 42 Temperature 97.9 F O2 Sat by Pulse Oximetry 2 Attending/Attestation - Attestation I have personally seen and examined this patient.: Yes I have fully participated in the care of the patient.: Yes I have reviewed all pertinent clinical information, including history, physical exam and plan: Yes Notes (Text): Severe tachypnea in mid 40's to 50's, maintained po2 on bipap, initially given lasix and nitro in suspicion of chf, but xray not consistent with chf, CTA PE study done showed b/l proximal PE. Patient although DNR/DNI confirmed with daughter, but transferred to ICU due to severe resp distress. Started on therapeutic lovenox, echo, venous doppler and labs. Primary team notified by nursing.
[2017-03-10] MEDS: Piperacill/Tazo 3.375gm in Dex 3.375 GM/50 ML BAG IVPB SCH ×3 (06:20→17:08)
[2017-03-10 06:46] LABS: BASO # 0.1 K/uL (0.0-0.2); BASO % 0.5 % (0.0-2.0); HEMOGLOBIN 12.3 g/dL (11.0-16.0); LYMPH # 0.7 K/uL (1.0-4.3); LYMPH % 4.1 % (20.0-40.0); MEAN CELL VOLUME 94.2 fL (81.0-99.0); MEAN CORPUSCULAR HEMOGLOBIN 31.7 pg (27.0-31.0); MEAN CORPUSCULAR HGB CONC 33.7 g/dL (33.0-37.0); MEAN PLATELET VOLUME 7.1 fL (7.2-11.7); MONO # 0.1 K/uL (0.0-0.8); MONO % 0.8 % (0.0-10.0); NEUT # 16.6 K/uL (1.8-7.0); NEUT % 94.6 % (50.0-75.0); PLATELET COUNT 287 K/uL (130-400); RBC 3.86 Mil/uL (3.80-5.20); RED CELL DISTRIBUTION WIDTH 12.4 % (11.5-14.5); WHITE BLOOD COUNT 17.6 K/uL (4.8-10.8)
[2017-03-10] MEDS: Enoxaparin 80 mg Syringe SC SCH ×2 (06:55→17:32)
[2017-03-10 06:58] LABS: PROTHROMBIN TIME 11.5 SECONDS (9.7-12.2)
[2017-03-10 07:01] LABS: ALB/GLOB RATIO 1.1 (1.0-2.1); ALBUMIN 3.8 g/dL (3.5-5.0); ALT/SGPT 23 U/L (9-52); AST/SGOT 26 U/L (14-36); BLOOD UREA NITROGEN 18 mg/dL (7-17); CALCIUM 8.1 mg/dl (8.6-10.4); GFR AFRICAN-AMERICAN > 60; GFR NON-AFRICAN AMERICAN 59
[2017-03-10 07:20] LABS: B-TYPE NATRIURETIC PEPTIDE 1100 pg/mL (0-900); CK-MB 2.12 ng/mL (0.0-3.38)
[2017-03-10] MEDS: Fluticasone-Salmeterol 250-50mcg Diskus IH SCH ×2 (07:52→19:15)
[2017-03-10] MEDS: Albuterol-Ipratrop 3 mg / 0.5 (3 ml) UD INH SCH ×4 (07:53→19:13)
--- NOTE | 2017-03-10 08:27 | RAD ---
HISTORY: SOB COMPARISON: Chest x-ray performed 06/09/16 TECHNIQUE: Chest, one view. FINDINGS: LUNGS: Ill-defined consolidative masslike opacity re-identified within the right upper lobe. Increased interstitial markings. Patchy opacity at the left lung base. Please note that chest x-ray has limited sensitivity for the detection of pulmonary masses. PLEURA: No significant pleural effusion identified. No definite pneumothorax . CARDIOVASCULAR: Cardiomegaly. Atherosclerotic calcifications of an ectatic aorta. OSSEOUS STRUCTURES: Osseous demineralization. Degenerative changes. VISUALIZED UPPER ABDOMEN: Unremarkable. OTHER FINDINGS: None. IMPRESSION: Ill-defined consolidative masslike opacity re-identified within the right upper lobe. Increased interstitial markings. Patchy opacity at the left lung base.
--- NOTE | 2017-03-10 08:28 | RAD ---
HISTORY: sob COMPARISON: Chest x-ray performed 03/09/17 TECHNIQUE: Chest, one view. FINDINGS: LUNGS: Ill-defined consolidative masslike opacity re-identified within the right upper lobe. Increased interstitial markings. Patchy opacity at the left lung base. Please note that chest x-ray has limited sensitivity for the detection of pulmonary masses. PLEURA: No significant pleural effusion identified. No definite pneumothorax . CARDIOVASCULAR: Cardiomegaly. Atherosclerotic calcifications. OSSEOUS STRUCTURES: Osseous demineralization. Degenerative changes. VISUALIZED UPPER ABDOMEN: Unremarkable. OTHER FINDINGS: None. IMPRESSION: Ill-defined consolidative masslike opacity re-identified within the right upper lobe. Increased interstitial markings. Patchy opacity at the left lung base.
--- NOTE | 2017-03-10 09:21 | CP.CCUPN ---
CCU Subjective - Physician Review Events Since Last Encounter (Free Text): 03/10/17 09:20 89 f with dementia arthritis copd htn admitted with bilateral PE. Pt is on bipap Patient is tolerating the BiPAP at this time. Patient has advanced directives, DNR/DNI. Vital signs stable. Bilateral wheezing in the chest minimally noted Regular heart sounds Abdomen soft Edema 1+ bilaterally 89-year-old female with a history of dementia, arthritis, hypertension, COPD admitted with the bilateral pulmonary embolism. Clinically stable. Patient will need to continue BiPAP. Patient is a DNR/DNI, and management can be done in the telemetry monitoring. Continue the current treatment CCU Objective - Vital Signs / Intake & Output Vital Signs (Last 4 hours): Vital Signs Pulse Resp BP Pulse Ox 03/10/17 07:56 109 H 03/10/17 07:00 81 31 H 154/61 H 96 03/10/17 06:09 82 Intake and Output (Last 8hrs): Intake & Output 03/09/17 03/10/17 03/10/17 22:59 06:59 14:59 Intake Total 50 Output Total 950 Balance 50 -950 Weight 140 lb 141 lb 0.2 oz Intake: Intake, IV Amount 50 Right Antecubital 50 Output: Urine 950 Urethral (Coelho) 950 Other: # Bowel Movements 0 - Medications Active Medications: Active Medications Generic Name Dose Route Start Last Admin Trade Name Freq PRN Reason Stop Dose Admin Acetaminophen 650 mg 03/10/17 00:35 Tylenol 325mg Tab PO Q6 PRN for pain and Temp.over 101 Albuterol/Ipratropium 3 ml 03/10/17 04:00 03/10/17 07:53 Duoneb 3 Mg/0.5 Mg (3 Ml) Ud INH 3 ml RQ4 GALLO Administration Amlodipine Besylate 5 mg 03/10/17 10:00 Norvasc PO DAILY GALLO Enoxaparin Sodium 65 mg 03/10/17 06:30 03/10/17 06:55 Lovenox SC 65 mg Q12H GALLO Administration Piperacillin Sod/Tazobactam Sod 3.375 gm in 50 mls @ 100 mls/hr 03/10/17 06: 00 03/10/17 06:20 Zosyn 3.375 Gm Iv Premix IVPB 100 mls/hr Q6H GALLO Administration Lorazepam 0.5 mg 03/10/17 00:35 03/10/17 08:16 Ativan IVP 0.5 mg Q12H PRN Administration Anxiety Methylprednisolone 40 mg 03/10/17 06:00 03/10/17 06:18 Solu-Medrol IV 40 mg Q6 GALLO Administration Montelukast Sodium 10 mg 03/10/17 10:00 Singulair PO DAILY GALLO Pantoprazole Sodium 40 mg 03/10/17 10:00 Protonix Inj IVP DAILY GALLO Fluticasone/Salmeterol 1 puff 03/10/17 08:00 03/10/17 07:52 Advair Diskus 250/50 IH Not Given RQ12 GALLO - Patient Studies Lab Studies: Lab Studies 03/10/17 03/10/17 03/10/17 Range/Units 06:38 06:38 06:38 WBC 17.6 H (4.8-10.8) K/uL RBC 3.86 (3.80-5.20) Mil/uL Hgb 12.3 (11.0-16.0) g/dL Hct 36.4 (34.0-47.0) % MCV 94.2 (81.0-99.0) fL MCH 31.7 H (27.0-31.0) pg MCHC 33.7 (33.0-37.0) g/dL RDW 12.4 (11.5-14.5) % Plt Count 287 (130-400) K/uL MPV 7.1 L (7.2-11.7) fL Neut % (Auto) 94.6 H (50.0-75.0) % Lymph % (Auto) 4.1 L (20.0-40.0) % Glynn % (Auto) 0.8 (0.0-10.0) % Eos % (Auto) 0.0 (0.0-4.0) % Baso % (Auto) 0.5 (0.0-2.0) % Neut # 16.6 H (1.8-7.0) K/uL Lymph # 0.7 L (1.0-4.3) K/uL Glynn # 0.1 (0.0-0.8) K/uL Eos # 0.0 (0.0-0.7) K/uL Baso # 0.1 (0.0-0.2) K/uL Neutrophils % (Manual) (50-75) % Band Neutrophils % (0-2) % Lymphocytes % (Manual) (20-40) % Monocytes % (Manual) (0-10) % Platelet Estimate (NORMAL) RBC Morphology PT 11.5 (9.7-12.2) SECONDS INR 1.0 APTT 30 (21-34) SECONDS Puncture Site pCO2 (35-45) mm/Hg pO2 (30-55) mm/Hg HCO3 (21-28) mmol/L ABG pH (7.35-7.45) ABG Total CO2 (22-28) mmol/L ABG O2 Saturation (95-98) % ABG Base Excess (-2.0-3.0) mmol/L ABG Hemoglobin (11.7-17.4) g/dL ABG Carboxyhemoglobin (0.5-1.5) % POC ABG HHb (Measured) (0.0-5.0) % ABG Methemoglobin (0.0-3.0) % Diony Test VBG pH (7.32-7.43) VBG pCO2 (40-60) mmHg VBG HCO3 mmol/L VBG Total CO2 (22-28) mmol/L VBG O2 Sat (Calc) (40-65) % VBG Base Excess (0.0-2.0) mmol/L VBG Potassium (3.6-5.2) mmol/L A-a O2 Difference mm/Hg Respiratory Index Hgb O2 Saturation (95.0-98.0) % Sodium 133 (132-148) mmol/l Chloride 94 L (98-107) mmol/L Glucose (65-105) mg/dl Lactate (0.7-2.1) mmol/L Vent Mode FiO2 % Inspiratory BiPAP Expiratory BiPAP Potassium 4.6 (3.6-5.2) mmol/L Carbon Dioxide 27 (22-30) mmol/L Anion Gap 17 (10-20) BUN 18 H (7-17) mg/dL Creatinine 0.9 (0.7-1.2) mg/dL Est GFR ( Amer) > 60 Est GFR (Non-Af Amer) 59 Random Glucose 137 H (65-105) mg/dL Calcium 8.1 L (8.6-10.4) mg/dl Phosphorus 4.7 H (2.5-4.5) mg/dL Magnesium 2.0 (1.6-2.3) mg/dL Total Bilirubin 0.5 (0.2-1.3) mg/dL AST 26 (14-36) U/L ALT 23 (9-52) U/L Alkaline Phosphatase 62 (38-126) U/L Total Creatine Kinase 101 (30-135) U/L CK-MB (Mass) 2.12 (0.0-3.38) ng/mL Troponin I 0.0400 (0.00-0.120) ng/mL NT-Pro-B Natriuret Pep 1100 H (0-900) pg/mL Total Protein 7.3 (6.3-8.3) g/dL Albumin 3.8 (3.5-5.0) g/dL Globulin 3.4 (2.2-3.9) gm/dL Albumin/Globulin Ratio 1.1 (1.0-2.1) Venous Blood Potassium (3.6-5.2) mmol/L 03/10/17 03/09/17 03/09/17 Range/Units 03:20 19:53 19:53 WBC 15.0 H D (4.8-10.8) K/uL RBC 3.95 (3.80-5.20) Mil/uL Hgb 12.7 D (11.0-16.0) g/dL Hct 37.2 (34.0-47.0) % MCV 94.2 (81.0-99.0) fL MCH 32.3 H (27.0-31.0) pg MCHC 34.2 (33.0-37.0) g/dL RDW 12.9 (11.5-14.5) % Plt Count 327 (130-400) K/uL MPV 7.0 L (7.2-11.7) fL Neut % (Auto) 82.8 H (50.0-75.0) % Lymph % (Auto) 8.2 L (20.0-40.0) % Glynn % (Auto) 7.9 (0.0-10.0) % Eos % (Auto) 0.3 (0.0-4.0) % Baso % (Auto) 0.8 (0.0-2.0) % Neut # 12.4 H (1.8-7.0) K/uL Lymph # 1.2 (1.0-4.3) K/uL Glynn # 1.2 H (0.0-0.8) K/uL Eos # 0.0 (0.0-0.7) K/uL Baso # 0.1 (0.0-0.2) K/uL Neutrophils % (Manual) 84 H (50-75) % Band Neutrophils % 4 H (0-2) % Lymphocytes % (Manual) 8 L (20-40) % Monocytes % (Manual) 4 (0-10) % Platelet Estimate Normal (NORMAL) RBC Morphology Normal PT (9.7-12.2) SECONDS INR APTT (21-34) SECONDS Puncture Site Lr pCO2 41 (35-45) mm/Hg pO2 421 H (30-55) mm/Hg HCO3 19.9 L (21-28) mmol/L ABG pH 7.29 L (7.35-7.45) ABG Total CO2 21.0 L (22-28) mmol/L ABG O2 Saturation 100.3 H (95-98) % ABG Base Excess -6.5 L (-2.0-3.0) mmol/L ABG Hemoglobin 11.2 L (11.7-17.4) g/dL ABG Carboxyhemoglobin 1.1 (0.5-1.5) % POC ABG HHb (Measured) -0.3 L (0.0-5.0) % ABG Methemoglobin 1.0 (0.0-3.0) % Diony Test Pos VBG pH (7.32-7.43) VBG pCO2 (40-60) mmHg VBG HCO3 mmol/L VBG Total CO2 (22-28) mmol/L VBG O2 Sat (Calc) (40-65) % VBG Base Excess (0.0-2.0) mmol/L VBG Potassium (3.6-5.2) mmol/L A-a O2 Difference 241.0 mm/Hg Respiratory Index 0.6 Hgb O2 Saturation 98.2 H (95.0-98.0) % Sodium 131 L (132-148) mmol/l Chloride 95 L (98-107) mmol/L Glucose (65-105) mg/dl Lactate (0.7-2.1) mmol/L Vent Mode Bipap FiO2 100.0 % Inspiratory BiPAP 12 Expiratory BiPAP 7 Potassium 4.5 (3.6-5.2) mmol/L Carbon Dioxide 27 (22-30) mmol/L Anion Gap 14 (10-20) BUN 13 (7-17) mg/dL Creatinine 0.8 (0.7-1.2) mg/dL Est GFR ( Amer) > 60 Est GFR (Non-Af Amer) > 60 Random Glucose 114 H (65-105) mg/dL Calcium 8.1 L (8.6-10.4) mg/dl Phosphorus (2.5-4.5) mg/dL Magnesium 1.9 (1.6-2.3) mg/dL Total Bilirubin 0.5 (0.2-1.3) mg/dL AST 27 (14-36) U/L ALT 13 (9-52) U/L Alkaline Phosphatase 73 (38-126) U/L Total Creatine Kinase (30-135) U/L CK-MB (Mass) (0.0-3.38) ng/mL Troponin I 0.0340 (0.00-0.120) ng/mL NT-Pro-B Natriuret Pep 748 (0-900) pg/mL Total Protein 7.7 (6.3-8.3) g/dL Albumin 4.0 (3.5-5.0) g/dL Globulin 3.7 (2.2-3.9) gm/dL Albumin/Globulin Ratio 1.1 (1.0-2.1) Venous Blood Potassium (3.6-5.2) mmol/L 03/09/17 Range/Units 19:52 WBC (4.8-10.8) K/uL RBC (3.80-5.20) Mil/uL Hgb (11.0-16.0) g/dL Hct (34.0-47.0) % MCV (81.0-99.0) fL MCH (27.0-31.0) pg MCHC (33.0-37.0) g/dL RDW (11.5-14.5) % Plt Count (130-400) K/uL MPV (7.2-11.7) fL Neut % (Auto) (50.0-75.0) % Lymph % (Auto) (20.0-40.0) % Glynn % (Auto) (0.0-10.0) % Eos % (Auto) (0.0-4.0) % Baso % (Auto) (0.0-2.0) % Neut # (1.8-7.0) K/uL Lymph # (1.0-4.3) K/uL Glynn # (0.0-0.8) K/uL Eos # (0.0-0.7) K/uL Baso # (0.0-0.2) K/uL Neutrophils % (Manual) (50-75) % Band Neutrophils % (0-2) % Lymphocytes % (Manual) (20-40) % Monocytes % (Manual) (0-10) % Platelet Estimate (NORMAL) RBC Morphology PT (9.7-12.2) SECONDS INR APTT (21-34) SECONDS Puncture Site pCO2 (35-45) mm/Hg pO2 69 H (30-55) mm/Hg HCO3 (21-28) mmol/L ABG pH (7.35-7.45) ABG Total CO2 (22-28) mmol/L ABG O2 Saturation (95-98) % ABG Base Excess (-2.0-3.0) mmol/L ABG Hemoglobin (11.7-17.4) g/dL ABG Carboxyhemoglobin (0.5-1.5) % POC ABG HHb (Measured) (0.0-5.0) % ABG Methemoglobin (0.0-3.0) % Diony Test VBG pH 7.29 L (7.32-7.43) VBG pCO2 58 (40-60) mmHg VBG HCO3 24.8 mmol/L VBG Total CO2 29.7 H (22-28) mmol/L VBG O2 Sat (Calc) 95.4 H (40-65) % VBG Base Excess 0.1 (0.0-2.0) mmol/L VBG Potassium 5.1 (3.6-5.2) mmol/L A-a O2 Difference mm/Hg Respiratory Index Hgb O2 Saturation (95.0-98.0) % Sodium 137.0 (132-148) mmol/l Chloride 100.0 (98-107) mmol/L Glucose 107 H (65-105) mg/dl Lactate 1.3 (0.7-2.1) mmol/L Vent Mode FiO2 % Inspiratory BiPAP Expiratory BiPAP Potassium (3.6-5.2) mmol/L Carbon Dioxide (22-30) mmol/L Anion Gap (10-20) BUN (7-17) mg/dL Creatinine (0.7-1.2) mg/dL Est GFR ( Amer) Est GFR (Non-Af Amer) Random Glucose (65-105) mg/dL Calcium (8.6-10.4) mg/dl Phosphorus (2.5-4.5) mg/dL Magnesium (1.6-2.3) mg/dL Total Bilirubin (0.2-1.3) mg/dL AST (14-36) U/L ALT (9-52) U/L Alkaline Phosphatase (38-126) U/L Total Creatine Kinase (30-135) U/L CK-MB (Mass) (0.0-3.38) ng/mL Troponin I (0.00-0.120) ng/mL NT-Pro-B Natriuret Pep (0-900) pg/mL Total Protein (6.3-8.3) g/dL Albumin (3.5-5.0) g/dL Globulin (2.2-3.9) gm/dL Albumin/Globulin Ratio (1.0-2.1) Venous Blood Potassium 5.1 (3.6-5.2) mmol/L Laboratory Results - last 24 hr 03/09/17 03/09/17 03/09/17 19:52 19:53 19:53 WBC 15.0 H D RBC 3.95 Hgb 12.7 D Hct 37.2 MCV 94.2 MCH 32.3 H MCHC 34.2 RDW 12.9 Plt Count 327 MPV 7.0 L Neut % (Auto) 82.8 H Lymph % (Auto) 8.2 L Glynn % (Auto) 7.9 Eos % (Auto) 0.3 Baso % (Auto) 0.8 Neut # 12.4 H Lymph # 1.2 Glynn # 1.2 H Eos # 0.0 Baso # 0.1 Neutrophils % (Manual) 84 H Band Neutrophils % 4 H Lymphocytes % (Manual) 8 L Monocytes % (Manual) 4 Platelet Estimate Normal RBC Morphology Normal PT INR APTT Puncture Site pCO2 pO2 69 H HCO3 ABG pH ABG Total CO2 ABG O2 Saturation ABG Base Excess ABG Hemoglobin ABG Carboxyhemoglobin POC ABG HHb (Measured) ABG Methemoglobin Diony Test VBG pH 7.29 L VBG pCO2 58 VBG HCO3 24.8 VBG Total CO2 29.7 H VBG O2 Sat (Calc) 95.4 H VBG Base Excess 0.1 VBG Potassium 5.1 A-a O2 Difference Respiratory Index Hgb O2 Saturation Sodium 137.0 131 L Chloride 100.0 95 L Glucose 107 H Lactate 1.3 Vent Mode FiO2 Inspiratory BiPAP Expiratory BiPAP Potassium 4.5 Carbon Dioxide 27 Anion Gap 14 BUN 13 Creatinine 0.8 Est GFR ( Amer) > 60 Est GFR (Non-Af Amer) > 60 Random Glucose 114 H Calcium 8.1 L Phosphorus Magnesium 1.9 Total Bilirubin 0.5 AST 27 ALT 13 Alkaline Phosphatase 73 Total Creatine Kinase CK-MB (Mass) Troponin I 0.0340 NT-Pro-B Natriuret Pep 748 Total Protein 7.7 Albumin 4.0 Globulin 3.7 Albumin/Globulin Ratio 1.1 Venous Blood Potassium 5.1 03/10/17 03/10/17 03/10/17 03:20 06:38 06:38 WBC 17.6 H RBC 3.86 Hgb 12.3 Hct 36.4 MCV 94.2 MCH 31.7 H MCHC 33.7 RDW 12.4 Plt Count 287 MPV 7.1 L Neut % (Auto) 94.6 H Lymph % (Auto) 4.1 L Glynn % (Auto) 0.8 Eos % (Auto) 0.0 Baso % (Auto) 0.5 Neut # 16.6 H Lymph # 0.7 L Glynn # 0.1 Eos # 0.0 Baso # 0.1 Neutrophils % (Manual) Band Neutrophils % Lymphocytes % (Manual) Monocytes % (Manual) Platelet Estimate RBC Morphology PT 11.5 INR 1.0 APTT 30 Puncture Site Lr pCO2 41 pO2 421 H HCO3 19.9 L ABG pH 7.29 L ABG Total CO2 21.0 L ABG O2 Saturation 100.3 H ABG Base Excess -6.5 L ABG Hemoglobin 11.2 L ABG Carboxyhemoglobin 1.1 POC ABG HHb (Measured) -0.3 L ABG Methemoglobin 1.0 Diony Test Pos VBG pH VBG pCO2 VBG HCO3 VBG Total CO2 VBG O2 Sat (Calc) VBG Base Excess VBG Potassium A-a O2 Difference 241.0 Respiratory Index 0.6 Hgb O2 Saturation 98.2 H Sodium Chloride Glucose Lactate Vent Mode Bipap FiO2 100.0 Inspiratory BiPAP 12 Expiratory BiPAP 7 Potassium Carbon Dioxide Anion Gap BUN Creatinine Est GFR ( Amer) Est GFR (Non-Af Amer) Random Glucose Calcium Phosphorus Magnesium Total Bilirubin AST ALT Alkaline Phosphatase Total Creatine Kinase CK-MB (Mass) Troponin I NT-Pro-B Natriuret Pep Total Protein Albumin Globulin Albumin/Globulin Ratio Venous Blood Potassium 03/10/17 06:38 WBC RBC Hgb Hct MCV MCH MCHC RDW Plt Count MPV Neut % (Auto) Lymph % (Auto) Glynn % (Auto) Eos % (Auto) Baso % (Auto) Neut # Lymph # Glynn # Eos # Baso # Neutrophils % (Manual) Band Neutrophils % Lymphocytes % (Manual) Monocytes % (Manual) Platelet Estimate RBC Morphology PT INR APTT Puncture Site pCO2 pO2 HCO3 ABG pH ABG Total CO2 ABG O2 Saturation ABG Base Excess ABG Hemoglobin ABG Carboxyhemoglobin POC ABG HHb (Measured) ABG Methemoglobin Diony Test VBG pH VBG pCO2 VBG HCO3 VBG Total CO2 VBG O2 Sat (Calc) VBG Base Excess VBG Potassium A-a O2 Difference Respiratory Index Hgb O2 Saturation Sodium 133 Chloride 94 L Glucose Lactate Vent Mode FiO2 Inspiratory BiPAP Expiratory BiPAP Potassium 4.6 Carbon Dioxide 27 Anion Gap 17 BUN 18 H Creatinine 0.9 Est GFR ( Amer) > 60 Est GFR (Non-Af Amer) 59 Random Glucose 137 H Calcium 8.1 L Phosphorus 4.7 H Magnesium 2.0 Total Bilirubin 0.5 AST 26 ALT 23 Alkaline Phosphatase 62 Total Creatine Kinase 101 CK-MB (Mass) 2.12 Troponin I 0.0400 NT-Pro-B Natriuret Pep 1100 H Total Protein 7.3 Albumin 3.8 Globulin 3.4 Albumin/Globulin Ratio 1.1 Venous Blood Potassium EKG/Cardiology Studies: Cardiology / EKG Studies 03/09/17 19:47 ELECTROCARDIOGRAM Stat Comment: Mode Of Transportation: BED Reason For Exam: SOB 03/10/17 02:27 EKG [ELECTROCARDIOGRAM] Stat Comment: Mode Of Transportation: Reason For Exam: soB Critical Care Progress Note - Nutrition Nutrition: Nutrition Category Date Time Status Mechanically altered [Dysphagia/Modified Consistency Diets 03/10/17 Breakfast Active Diet] [DIET]
[2017-03-10 09:26] LABS: BANDS 1 % (0-2); LYMPHOCYTE 4 % (20-40); MONOCYTE 1 % (0-10); NEUTROPHIL 94 % (50-75); PLATELET ESTIMATE NORMAL (NORMAL); TOTAL CELLS COUNTED 100
[2017-03-10 09:27] LABS: ANISOCYTOSIS SLIGHT; HYPOCHROMIC SLIGHT; POLYCHROMIC SLIGHT
[2017-03-10 09:28] LABS: LARGE PLATELETS PRESENT; TOXIC GRANULATION PRESENT
[2017-03-10 09:29] LABS: GIANT PLATELETS PRESENT
[2017-03-10] MEDS ORDERED: Enoxaparin 30 mg Syringe SC SCH (10:00)
[2017-03-11] MEDS: Piperacill/Tazo 3.375gm in Dex 3.375 GM/50 ML BAG IVPB SCH ×4 (00:04→17:44)
[2017-03-11] MEDS: Albuterol-Ipratrop 3 mg / 0.5 (3 ml) UD INH SCH ×7 (00:18→23:40)
[2017-03-11] MEDS: Enoxaparin 80 mg Syringe SC SCH (06:00)
[2017-03-11] MEDS: Fluticasone-Salmeterol 250-50mcg Diskus IH SCH ×2 (09:03→19:42)
[2017-03-11] MEDS: MethylPREDNISolone 40 mg Vial IV SCH (17:44)
[2017-03-12] MEDS: Piperacill/Tazo 3.375gm in Dex 3.375 GM/50 ML BAG IVPB SCH ×4 (00:29→17:44)
[2017-03-12] MEDS: MethylPREDNISolone 40 mg Vial IV SCH ×4 (00:30→17:44)
[2017-03-12] MEDS: Albuterol-Ipratrop 3 mg / 0.5 (3 ml) UD INH SCH ×5 (03:13→19:15)
[2017-03-12 06:36] LABS: BASO % 0.2 % (0.0-2.0); HEMOGLOBIN 12.5 g/dL (11.0-16.0); LYMPH # 0.5 K/uL (1.0-4.3); LYMPH % 3.4 % (20.0-40.0); MEAN CELL VOLUME 94.8 fL (81.0-99.0); MEAN CORPUSCULAR HEMOGLOBIN 31.1 pg (27.0-31.0); MEAN CORPUSCULAR HGB CONC 32.8 g/dL (33.0-37.0); MEAN PLATELET VOLUME 7.2 fL (7.2-11.7); MONO # 0.6 K/uL (0.0-0.8); NEUT # 14.2 K/uL (1.8-7.0); NEUT % 92.4 % (50.0-75.0); PLATELET COUNT 363 K/uL (130-400); RBC 4.02 Mil/uL (3.80-5.20); RED CELL DISTRIBUTION WIDTH 12.7 % (11.5-14.5); WHITE BLOOD COUNT 15.4 K/uL (4.8-10.8)
[2017-03-12 06:52] LABS: ALB/GLOB RATIO 1.1 (1.0-2.1); ALBUMIN 3.8 g/dL (3.5-5.0); ALT/SGPT 43 U/L (9-52); AST/SGOT 46 U/L (14-36); BLOOD UREA NITROGEN 29 mg/dL (7-17); CALCIUM 8.1 mg/dl (8.6-10.4); GFR AFRICAN-AMERICAN > 60; GFR NON-AFRICAN AMERICAN 52
[2017-03-12] MEDS: Fluticasone-Salmeterol 250-50mcg Diskus IH SCH ×2 (07:50→19:13)
--- NOTE | 2017-03-12 07:54 | HP ---
HISTORY OF PRESENT ILLNESS: This 89-year-old female admitted with chief complaint of weakness, fatigue, tiredness, shortness of breath. Patient came to the ER for admission. Patient has COPD with pulmonary infiltrate in the past, COPD. PHYSICAL EXAMINATION: GENERAL: Patient is awake, alert, and oriented. VITAL SIGNS: Temperature is 98, pulse 90. HEENT: Within normal limits. NECK: Supple. CHEST: Symmetrical. HEART: Regular. ABDOMEN: Soft. EXTREMITIES: No edema. IMPRESSION: Patient has pneumonia, chronic obstructive pulmonary disease. PLAN: Patient will get bed rest, supportive care, bronchodilators, antibiotics. Meryl Coulter MD
[2017-03-12 08:33] LABS: BANDS 6 % (0-2); LYMPHOCYTE 5 % (20-40); MONOCYTE 3 % (0-10); NEUTROPHIL 86 % (50-75); PLATELET ESTIMATE NORMAL (NORMAL); TOTAL CELLS COUNTED 100
--- NOTE | 2017-03-12 08:33 | CARD ---
APPROVED REPORT EXAM: Two-dimensional and M-mode echocardiogram with Doppler and color Doppler. Other Information Quality : Technically LimitedRhythm : NSR INDICATION Dyspnea Congestive Heart Failure COPD RISK FACTORS Hypertension Hyperlipidemia M-Mode DIMENSIONS Left Atrium (MM)2.33 (2.5-4.0cm)IVSd1.08 (0.7-1.1cm) Aortic Root2.26 (2.2-3.7cm)LVDd4.69 (4.0-5.6cm) Aortic Cusp Exc.1.39 (1.5-2.0cm)PWd0.94 (0.7-1.1cm) FS (%) 22 %LVDs3.64 (2.0-3.8cm) LVEF (%)45 (>50%) Mitral Valve E/A ratio0.0 TDI E/Lateral E'0.0E/Medial E'0.0 LEFT VENTRICLE The left ventricle is normal size. There is borderline to mild concentric left ventricular hypertrophy. The left ventricular function is normal. The left ventricular ejection fraction is within the normal range. There is normal LV segmental wall motion. NOT MEASURED NWV NWV RIGHT VENTRICLE The right ventricle is normal size. There is normal right ventricular wall thickness. The right ventricular systolic function is normal. ATRIA The left atrium size is normal. The right atrium size is normal. NWV AORTIC VALVE NWV MITRAL VALVE NWV TRICUSPID VALVE NWV PULMONIC VALVE NWV GREAT VESSELS The aortic root is normal in size. NWV NWV The IVC is normal in size and collapses >50% with inspiration. PERICARDIAL EFFUSION There is no pericardial effusion. There is no pleural effusion. <Conclusion> Technically Limited study The left ventricle is normal size. There is borderline to mild concentric left ventricular hypertrophy. The left ventricular function is GROSSLY normal. The left ventricular ejection fraction is within the normal range. ALL VALVES WERE NOT WELL VISUALIZED DIASTOLIC FUNCTION NOT EVALUATED DUE TO POOR IMAGE WINDOWS.
--- NOTE | 2017-03-12 09:01 | CARD ---
APPROVED REPORT EKG Measurement Heart [id number] <Conclusion> Sinus rhythm with premature supraventricular complexes Right atrial enlargement Right bundle branch block Abnormal ECG
--- NOTE | 2017-03-12 09:43 | CP.PCM.PN ---
Subjective - Date & Time of Evaluation Date of Evaluation: 03/12/17 Time of Evaluation: 09:43 - Subjective Subjective: PGY-[address] Coulter's service: Objective - Vital Signs/Intake and Output Vital Signs (last 24 hours): Temp Pulse Resp BP Pulse Ox 98.6 F 98 H 32 H 163/64 H 100 03/12/17 08:00 03/12/17 09:08 03/12/17 09:08 03/12/17 09:08 03/12/17 09:08 Intake and Output: 03/12/17 03/12/17 06:59 18:59 Intake Total 50 250 Output Total 550 Balance 50 -300 - Medications Medications: Current Medications Acetaminophen (Tylenol 325mg Tab) 650 mg PO Q6 PRN PRN Reason: for pain and Temp.over 101 Last Admin: 03/10/17 18:51 Dose: 650 mg Albuterol/Ipratropium (Duoneb 3 Mg/0.5 Mg (3 Ml) Ud) 3 ml INH RQ4 [facility] Last Admin: 03/12/17 07:50 Dose: 3 ml Amlodipine Besylate (Norvasc) 5 mg PO DAILY [facility] Last Admin: 03/12/17 09:11 Dose: 5 mg Enoxaparin Sodium (Lovenox) 40 mg SC DAILY [facility] Last Admin: 03/12/17 09:10 Dose: 40 mg Piperacillin Sod/Tazobactam Sod (Zosyn 3.375 Gm Iv Premix) 3.375 gm in 50 mls @ 100 mls/hr IVPB Q6H [facility] Last Admin: 03/12/17 05:32 Dose: 100 mls/hr Lorazepam (Ativan) 0.5 mg IVP Q12H PRN PRN Reason: Anxiety Last Admin: 03/11/17 04:29 Dose: 0.5 mg Methylprednisolone (Solu-Medrol) 40 mg IV Q6 [facility] Last Admin: 03/12/17 05:33 Dose: 40 mg Montelukast Sodium (Singulair) 10 mg PO HS [facility] Last Admin: 03/11/17 21:30 Dose: 10 mg Pantoprazole Sodium (Protonix Inj) 40 mg IVP DAILY [facility] Last Admin: 03/12/17 09:10 Dose: 40 mg Fluticasone/Salmeterol (Advair Diskus 250/50) 1 puff IH RQ12 [facility] Last Admin: 03/12/17 07:50 Dose: Not Given - Labs Labs: 03/12/17 06:25 03/12/17 06:25 PT 11.5 SECONDS (9.7-12.2) 03/10/17 06:38 INR 1.0 03/10/17 06:38 APTT 30 SECONDS (21-34) 03/10/17 06:38
--- NOTE | 2017-03-12 09:46 | VASCLAB ---
PROCEDURE: Lower Extremity Venous Duplex Exam. HISTORY: Leg swelling PRIORS: None. TECHNIQUE: Bilateral common femoral, femoral, popliteal and posterior tibial, peroneal and great saphenous veins were evaluated. Flow was assessed with color Doppler, compressibility, assessment of phasic flow and augmentation response. Report prepared by KEMAR Villafana FINDINGS: RIGHT: 1. Common Femoral Vein: 1.1. Compressibility - Fully compressible: Thrombus - None : Flow - Phasic: Augmentation -Normal: Reflux - None. 2. Femoral Vein: (proximal to mid only) catheter distally 2.1. Compressibility - Fully compressible: Thrombus - None : Flow - Phasic: Augmentation -Normal: Reflux - None. 3. Popliteal Vein: 3.1. Compressibility - Fully compressible: Thrombus - None : Flow - Phasic: Augmentation -Normal: Reflux - None. 4. Posterior Tibial Vein: 4.1. Compressibility - Fully compressible: Thrombus - None: Flow - Phasic: Augmentation -Normal: Reflux - None. 5. Peroneal Vein: 5.1. Compressibility - Fully compressible: Thrombus - None: Flow - Phasic: Augmentation -Normal: Reflux - None. 6. Great Saphenous Vein: 6.1. Compressibility - Fully compressible: Thrombus - None: Flow - Phasic: Augmentation - Normal: Reflux - None. LEFT: 1. Common Femoral Vein: 1.1. Compressibility - Fully compressible: Thrombus - None: Flow - Phasic: Augmentation -Normal: Reflux - None. 2. Femoral Vein: 2.1. Compressibility - Fully compressible: Thrombus - None: Flow - Phasic: Augmentation -Normal: Reflux - None. 3. Popliteal Vein: 3.1. Compressibility - Fully compressible: Thrombus - None : Flow - Phasic: Augmentation -Normal: Reflux - None. 4. Posterior Tibial Vein: 4.1. Compressibility - Fully compressible: Thrombus - None: Flow - Phasic: Augmentation -Normal: Reflux - None. 5. Peroneal Vein: 5.1. Not visible due to swelling 6. Great Saphenous Vein: 6.1. Compressibility - Fully compressible: Thrombus - None: Flow - Phasic: Augmentation - Normal: Reflux - None. OTHER FINDINGS: Right: None significant. Left: None significant. IMPRESSION: Right: No evidence of deep or superficial vein thrombosis of the right lower extremity. Normal valve function noted of the right side. Left: No evidence of deep or superficial vein thrombosis of the left lower extremity. Normal valve function noted of the left side.
--- NOTE | 2017-03-12 09:56 | CP.PCM.PN ---
Subjective - Date & Time of Evaluation Date of Evaluation: 03/12/17 Time of Evaluation: 09:51 - Subjective Subjective: PGY-[address] Coulter's service: Pt seen and examined at bedside. Nursing reports patient tachycardic this AM. Pt afib so started on Cardizem. Had long conversation with family at bedside, including POA - daughter Elvia, about care goals moving forward. Family made aware that due to burden of pulmonary embolism patient is having difficulty breathing. Due to frail condition pt is not a candidate for embelectomy. Family understands and consents to hospice evaluation and initiation of Morphine to calm tachypnea. Family asking for pt to be sent back to [facility] as soon as feasible. ROS unavailable due to pt condition. Objective - Vital Signs/Intake and Output Vital Signs (last 24 hours): Temp Pulse Resp BP Pulse Ox 98.6 F 98 H 32 H 163/64 H 100 03/12/17 08:00 03/12/17 09:08 03/12/17 09:08 03/12/17 09:08 03/12/17 09:08 Intake and Output: 03/12/17 03/12/17 06:59 18:59 Intake Total 50 250 Output Total 550 Balance 50 -300 - Medications Medications: Current Medications Acetaminophen (Tylenol 325mg Tab) 650 mg PO Q6 PRN PRN Reason: for pain and Temp.over 101 Last Admin: 03/10/17 18:51 Dose: 650 mg Albuterol/Ipratropium (Duoneb 3 Mg/0.5 Mg (3 Ml) Ud) 3 ml INH RQ4 [facility] Last Admin: 03/12/17 07:50 Dose: 3 ml Amlodipine Besylate (Norvasc) 5 mg PO DAILY [facility] Last Admin: 03/12/17 09:11 Dose: 5 mg Enoxaparin Sodium (Lovenox) 40 mg SC DAILY [facility] Last Admin: 03/12/17 09:10 Dose: 40 mg Piperacillin Sod/Tazobactam Sod (Zosyn 3.375 Gm Iv Premix) 3.375 gm in 50 mls @ 100 mls/hr IVPB Q6H [facility] Last Admin: 03/12/17 05:32 Dose: 100 mls/hr Lorazepam (Ativan) 0.5 mg IVP Q12H PRN PRN Reason: Anxiety Last Admin: 03/11/17 04:29 Dose: 0.5 mg Methylprednisolone (Solu-Medrol) 40 mg IV Q6 [facility] Last Admin: 03/12/17 05:33 Dose: 40 mg Montelukast Sodium (Singulair) 10 mg PO HS [facility] Last Admin: 03/11/17 21:30 Dose: 10 mg Pantoprazole Sodium (Protonix Inj) 40 mg IVP DAILY [facility] Last Admin: 03/12/17 09:10 Dose: 40 mg Fluticasone/Salmeterol (Advair Diskus 250/50) 1 puff IH RQ12 [facility] Last Admin: 03/12/17 07:50 Dose: Not Given - Labs Labs: 03/12/17 06:25 03/12/17 06:25 PT 11.5 SECONDS (9.7-12.2) 03/10/17 06:38 INR 1.0 03/10/17 06:38 APTT 30 SECONDS (21-34) 03/10/17 06:38 - Constitutional Appears: Confused, Chronically Ill - Head Exam Head Exam: ATRAUMATIC, NORMAL INSPECTION, NORMOCEPHALIC - Eye Exam Eye Exam: Normal appearance - ENT Exam ENT Exam: Mucous Membranes Dry - Neck Exam Neck Exam: Normal Inspection - Respiratory Exam Respiratory Exam: Accessory Muscle Use, Decreased Breath Sounds, Wheezes, Respiratory Distress. absent: NORMAL BREATHING PATTERN - Cardiovascular Exam Cardiovascular Exam: Tachycardia, JVD - GI/Abdominal Exam GI & Abdominal Exam: Soft, Normal Bowel Sounds. absent: Distended - Extremities Exam Extremities Exam: Pedal Edema (mild bilateral) - Back Exam Back Exam: absent: CVA tenderness (L), CVA tenderness (R) - Neurological Exam Neurological Exam: Awake. absent: Alert, Oriented x3 - Skin Skin Exam: Dry, Warm Assessment and Plan - Assessment and Plan (Free Text) Plan: Bilateral Pulmonary Embolism Admit to ICU, transfer to TELE Pt not candidate for embelectomy due to frail condition- benefits due not outweigh risks of procedure US VDL B/L (03/10/17): Negative for DVT CT Angio (03/09/17): B/l main pulmonary artery PE extending into b/l upper, lower , lingula, and right middle lobe representing PE. Posterior to right upper lobe pleural parenchymal infiltrate and consolidation with volume loss. Right middle lobe, inferior left upper lobe and lingular nodular infiltration representing sequela of infectious inflammatory etiology. PNA vs aspiration pneumonia. Neoplastic process cannot be excluded. Inferior left upper lobe and lingular infiltrate is new when compared to prior examination. CXR (03/10/17): Ill-defined consolidative masslike opacity re-identified within right upper lobe. Patchy opacity at left upper base. ECHO (03/10/17): LV normal size. Mild concentric LVH. LV function grossly normal. EF within normal range. Valves not well visualized. Diastolic function not evaluated due to poor image windows (see full report) Lovenox 60 mg SC Daily - renal adjusted therapeutic dose BIPAP PRN Morphine 2mg Q4H for tachypnea [facility] Acquired Pneumonia vs Aspiration Pneumonia vs. Neoplastic process Pt afebrile; Tachypneic; WBC elevated (15.4); Left shift; [address] Angio (03/09/17): B/l main pulmonary artery PE extending into b/l upper, lower , lingula, and right middle lobe representing PE. Posterior to right upper lobe pleural parenchymal infiltrate and consolidation with volume loss. Right middle lobe, inferior left upper lobe and lingular nodular infiltration representing sequela of infectious inflammatory etiology. PNA vs aspiration pneumonia. Neoplastic process cannot be excluded. Inferior left upper lobe and lingular infiltrate is new when compared to prior examination. CXR (03/10/17): Ill-defined consolidative masslike opacity re-identified within right upper lobe. Patchy opacity at left upper base. Zosyn 3.375 gm IV Q6H [facility] Duonebs Q4H [facility] COPD Solu-Medrol 40mg IV Q6H [facility] Singulair 10mg PO HS [facility] HTN Elevated pressures today Cardizem 60mg PO Q8H started today due to Afib Norvasc 5mg PO Daily Afib Cardizem 60mg PO Q8H Prophylaxis Protonix 40mg IV Daily Lovenox 60mg SC Daily (renally adjusted therapeutic dose) SCDs Disposition: Pt DNR/DNI. Family aware of critical nature of PE burden and are asking for hospice at [facility]. Hospice eval placed and will follow up recommendations. Palliative care consult placed as well. Attending Dr. Coulter made aware of family's wishes. Gonzalez Covarrubias PGY-2 All medical management per attending, Dr. Coulter
[2017-03-12] MEDS ORDERED: Enoxaparin 40 mg Syringe SC SCH (10:00)
--- NOTE | 2017-03-12 15:04 | CARD ---
APPROVED REPORT EKG Measurement Heart [id number] <Conclusion> Sinus rhythm with premature supraventricular complexes and fusion complexes Right atrial enlargement Right bundle branch block Abnormal ECG
[2017-03-12] MEDS: Enoxaparin 60 mg Syringe SC SCH (18:48)
[2017-03-13] MEDS: Albuterol-Ipratrop 3 mg / 0.5 (3 ml) UD INH SCH ×3 (00:01→08:21)
[2017-03-13] MEDS: Piperacill/Tazo 3.375gm in Dex 3.375 GM/50 ML BAG IVPB SCH ×2 (00:41→05:46)
[2017-03-13] MEDS: MethylPREDNISolone 40 mg Vial IV SCH ×3 (00:41→11:20)
[2017-03-13 06:39] VITALS: TEMP 98.2
--- NOTE | 2017-03-13 08:14 | CP.PCM.PN ---
Subjective - Date & Time of Evaluation Date of Evaluation: 03/13/17 Time of Evaluation: 08:13 - Subjective Subjective: PGY-[address] Coulter's service: Pt seen and examined at bedside. Nursing reports no acute events overnight. Pt in normal sinus rhythm today and heart rate controlled this AM. Hospice evaluation and palliative care consults scheduled for today. ROS unavailable due to pt condition. Objective - Vital Signs/Intake and Output Vital Signs (last 24 hours): Temp Pulse Resp BP Pulse Ox 98.2 F 91 H 43 H 127/68 66 L 03/13/17 04:00 03/13/17 06:00 03/13/17 06:00 03/13/17 04:48 03/13/17 06:00 - Medications Medications: Current Medications Acetaminophen (Tylenol 325mg Tab) 650 mg PO Q6 PRN PRN Reason: for pain and Temp.over 101 Last Admin: 03/10/17 18:51 Dose: 650 mg Albuterol/Ipratropium (Duoneb 3 Mg/0.5 Mg (3 Ml) Ud) 3 ml INH RQ4 [facility] Last Admin: 03/13/17 03:07 Dose: 3 ml Amlodipine Besylate (Norvasc) 5 mg PO DAILY [facility] Last Admin: 03/12/17 09:11 Dose: 5 mg Diltiazem HCl (Cardizem) 60 mg PO Q8 [facility] Last Admin: 03/13/17 05:44 Dose: 60 mg Enoxaparin Sodium (Lovenox) 60 mg SC DAILY [facility] Last Admin: 03/12/17 18:48 Dose: 60 mg Piperacillin Sod/Tazobactam Sod (Zosyn 3.375 Gm Iv Premix) 3.375 gm in 50 mls @ 100 mls/hr IVPB Q6H [facility] Last Admin: 03/13/17 05:46 Dose: 100 mls/hr Lorazepam (Ativan) 0.5 mg IVP Q12H PRN PRN Reason: Anxiety Last Admin: 03/11/17 04:29 Dose: 0.5 mg Methylprednisolone (Solu-Medrol) 40 mg IV Q6 [facility] Last Admin: 03/13/17 05:44 Dose: 40 mg Montelukast Sodium (Singulair) 10 mg PO HS [facility] Last Admin: 03/12/17 21:25 Dose: 10 mg Morphine Sulfate (Morphine) 2 mg IVP Q4 PRN PRN Reason: Agitation Pantoprazole Sodium (Protonix Inj) 40 mg IVP DAILY [facility] Last Admin: 03/12/17 09:10 Dose: 40 mg Fluticasone/Salmeterol (Advair Diskus 250/50) 1 puff IH RQ12 [facility] Last Admin: 03/12/17 19:13 Dose: Not Given - Labs Labs: 03/12/17 06:25 03/12/17 06:25 PT 11.5 SECONDS (9.7-12.2) 03/10/17 06:38 INR 1.0 03/10/17 06:38 APTT 30 SECONDS (21-34) 03/10/17 06:38 - Additional Findings Additional findings: - Constitutional Appears: Confused, Chronically Ill - Head Exam Head Exam: ATRAUMATIC, NORMAL INSPECTION, NORMOCEPHALIC - Eye Exam Eye Exam: Normal appearance - ENT Exam ENT Exam: Mucous Membranes Dry - Neck Exam Neck Exam: Normal Inspection - Respiratory Exam Respiratory Exam: Accessory Muscle Use, Decreased Breath Sounds, Wheezes bilaterally, Tachypneic Respiratory Distress. absent: NORMAL BREATHING PATTERN - Cardiovascular Exam Cardiovascular Exam: S1, S2, no murmurs/rubs/gallops - GI/Abdominal Exam GI & Abdominal Exam: Soft, Normal Bowel Sounds. absent: Distended - Extremities Exam Extremities Exam: Pedal Edema (mild bilateral) - Back Exam Back Exam: absent: CVA tenderness (L), CVA tenderness (R) - Neurological Exam Neurological Exam: Awake. absent: Alert, Oriented x3 - Skin Skin Exam: Dry, Warm Assessment and Plan - Assessment and Plan (Free Text) Plan: Bilateral Pulmonary Embolism Admit to ICU, transfer to TELE Pt not candidate for embelectomy due to frail condition- benefits due not outweigh risks of procedure US VDL B/L (03/10/17): Negative for DVT CT Angio (03/09/17): B/l main pulmonary artery PE extending into b/l upper, lower , lingula, and right middle lobe representing PE. Posterior to right upper lobe pleural parenchymal infiltrate and consolidation with volume loss. Right middle lobe, inferior left upper lobe and lingular nodular infiltration representing sequela of infectious inflammatory etiology. PNA vs aspiration pneumonia. Neoplastic process cannot be excluded. Inferior left upper lobe and lingular infiltrate is new when compared to prior examination. CXR (03/10/17): Ill-defined consolidative masslike opacity re-identified within right upper lobe. Patchy opacity at left upper base. ECHO (03/10/17): LV normal size. Mild concentric LVH. LV function grossly normal. EF within normal range. Valves not well visualized. Diastolic function not evaluated due to poor image windows (see full report) Lovenox 60 mg SC Daily - renal adjusted therapeutic dose BIPAP PRN Morphine 2mg Q4H for tachypnea End of Life Care Goals Family aware of critical nature of large pulmonary embolism. They are asking for hospice at [facility]. Hospice eval placed and will follow up recommendations Palliative care consult placed as well [place] Acquired Pneumonia vs Aspiration Pneumonia vs. Neoplastic process Pt afebrile; Tachypneic; WBC elevated (15.4); Left shift; [address] Angio (03/09/17): B/l main pulmonary artery PE extending into b/l upper, lower , lingula, and right middle lobe representing PE. Posterior to right upper lobe pleural parenchymal infiltrate and consolidation with volume loss. Right middle lobe, inferior left upper lobe and lingular nodular infiltration representing sequela of infectious inflammatory etiology. PNA vs aspiration pneumonia. Neoplastic process cannot be excluded. Inferior left upper lobe and lingular infiltrate is new when compared to prior examination. CXR (03/10/17): Ill-defined consolidative masslike opacity re-identified within right upper lobe. Patchy opacity at left upper base. Zosyn 3.375 gm IV Q6H [facility] Duonebs Q4H [facility] COPD Solu-Medrol 40mg IV Q6H [facility] Singulair 10mg PO HS [facility] HTN Better controlled today Cardizem 60mg PO Q8H Norvasc 5mg PO Daily Afib Pt in NSR on monitor today Cardizem 60mg PO Q8H Prophylaxis Protonix 40mg IV Daily Lovenox 60mg SC Daily (renally adjusted therapeutic dose) SCDs Disposition: Pt DNR/DNI. Family aware of critical nature of PE burden and are asking for hospice at [facility]. Hospice eval placed and will follow up recommendations. Palliative care consult placed as well. Attending Dr. Coulter aware of family's wishes. Gonzalez Covarrubias PGY-2 All medical management per attending, Dr. Coulter
[2017-03-13] MEDS: Fluticasone-Salmeterol 250-50mcg Diskus IH SCH (08:21)
[2017-03-13] MEDS: Enoxaparin 60 mg Syringe SC SCH (10:00)
[2017-03-13] MEDS ORDERED: Atropine 1% Ophth Soln (15 ml) OU SCH (11:45)
[2017-03-13] MEDS ORDERED: Piperacill/Tazo 2.25gm in Dex 2.25 GM/50 ML BAG IVPB SCH (12:00)
[2017-03-13 12:29] VITALS: BP 150/80; PULSE 98; RESP 41; O2SAT 97
--- NOTE | 2017-03-13 12:40 | CP.PCM.PCO ---
Physician Communication Note - Physician Communication Note Physician Communication Note: Patient accepted to hospice care
--- NOTE | 2017-03-21 07:18 | DS ---
The patient was admitted to the hospital with chief complaint of weakness, fatigue, tiredness, cough, and shortness of breath. The patient had pulmonary embolism and pneumonia. The patient was started on antibiotics. poor condition. Family requested hospice care. The patient entered hospice, pulmonary embolism . Meryl Coulter MD
== END 2017-03-13 12:48 | disposition hospice, inpatient (51) | DRG 175 ==
LOC: C.ER 19:35 → C.9E 21:52 → C.6T 03-10 00:04 → C.9I 03-10 04:27
PROVIDERS: ADMIT Internal Medicine Pulmonary Disease; ATTEND Internal Medicine Pulmonary Disease
PROC: 5A09457 Assistance with Respiratory Ventilation, 24-96 Consecutive Hours, Continuous Positive Airway Pressure (ICD-10-PCS; principal; 2017-03-09)
DX: I26.99 Other pulmonary embolism without acute cor pulmonale (principal); J18.9 Pneumonia, unspecified organism; J96.90 Respiratory failure, unspecified, unspecified whether with hypoxia or hypercapnia; I11.0 Hypertensive heart disease with heart failure; J44.0 Chronic obstructive pulmonary disease with (acute) lower respiratory infection; I50.9 Heart failure, unspecified; I48.91 Unspecified atrial fibrillation; J44.1 Chronic obstructive pulmonary disease with (acute) exacerbation; F03.90 Unspecified dementia, unspecified severity, without behavioral disturbance, psychotic disturbance, mood disturbance, and anxiety; Z86.711 Personal history of pulmonary embolism; K21.9 Gastro-esophageal reflux disease without esophagitis; M19.90 Unspecified osteoarthritis, unspecified site; Z66 Do not resuscitate; Z51.5 Encounter for palliative care

== ENCOUNTER 2017-03-13 12:13 | Inpatient (IN) | payer OTHER ==
[2017-03-13] MEDS ORDERED: Atropine 1% Ophth Soln (15 ml) OU SCH (16:00)
[2017-03-13] MEDS ORDERED: Atropine 1% Ophth Soln (15 ml) SL PRN (16:46)
[2017-03-14 07:39] VITALS: BP 158/77; PULSE 77; RESP 32; TEMP 98.5; O2SAT 99
--- NOTE | 2017-03-14 13:49 | CP.PCM.PN ---
Subjective - Date & Time of Evaluation Date of Evaluation: 03/14/17 Time of Evaluation: 13:47 - Subjective Subjective: PGY2 progress note for Dr. Coulter 89 year old female with past medical history of Dementia,Arthritis, Asthma/ COPD , HTN was admitted to hospital for respiratory distress. She was found to have B/L lanie pulmonary artery PE. Patient was not a candidate for embolectomy due to frail condition and was placed to hospice. Currently she resting. ROS unobtainable due to mental status. Objective - Vital Signs/Intake and Output Vital Signs (last 24 hours): Temp Pulse Resp BP Pulse Ox 98.5 F 77 32 H 158/77 H 99 03/14/17 06:00 03/14/17 06:00 03/14/17 06:00 03/14/17 06:00 03/14/17 06:00 Intake and Output: 03/14/17 03/14/17 06:59 18:59 Intake Total 0 Output Total 200 40 Balance -200 -40 - Medications Medications: Current Medications Acetaminophen (Tylenol 325mg Tab) 650 mg PO Q6 PRN PRN Reason: Fever >100.4 F Atropine Sulfate (Atropisol 1% Ophth) 0.1 ml SL Q2H PRN PRN Reason: Terminal Respiratory Secretion Lorazepam (Ativan) 0.5 mg IVP Q4H PRN PRN Reason: Anxiety Morphine Sulfate (Morphine) 2 mg IVP Q4 PRN PRN Reason: Agitation Last Admin: 03/14/17 09:18 Dose: 2 mg - Constitutional Appears: Non-toxic, No Acute Distress - ENT Exam ENT Exam: Mucous Membranes Moist - Respiratory Exam Respiratory Exam: absent: Rales, Rhonchi, Wheezes, Respiratory Distress - Cardiovascular Exam Cardiovascular Exam: REGULAR RHYTHM, +S1, +S2 - GI/Abdominal Exam GI & Abdominal Exam: Soft, Normal Bowel Sounds. absent: Distended, Firm, Guarding, Rigid, Tenderness, Organomegaly - Neurological Exam Neurological Exam: absent: Alert, Awake - Psychiatric Exam Psychiatric exam: absent: Normal Affect, Normal Mood - Skin Skin Exam: Dry, Intact, Normal Color, Warm Assessment and Plan - Assessment and Plan (Free Text) Assessment: 89 year old female with past medical history of pulmonary embolus, COPD, HTN, A fib is admitted to hospice care. Hospice care for PE Continue morphine drip Disposition Awaiting bed at residential All management and orders per Dr. Coulter
== END 2017-03-14 17:22 | DRG 951 ==
LOC: C.9I 12:13
PROVIDERS: ADMIT Internal Medicine Pulmonary Disease; ATTEND Internal Medicine Pulmonary Disease
DX: Z51.5 Encounter for palliative care (principal); I26.99 Other pulmonary embolism without acute cor pulmonale; J44.9 Chronic obstructive pulmonary disease, unspecified; I48.91 Unspecified atrial fibrillation; F03.90 Unspecified dementia, unspecified severity, without behavioral disturbance, psychotic disturbance, mood disturbance, and anxiety; I10 Essential (primary) hypertension; Z66 Do not resuscitate